=== PATIENT | female | born 1975 | race Caucasian/White ===

== ENCOUNTER 2019-10-18 07:33 | Outpatient (CLI) | payer BC, OTHER, SELFPAY ==
--- NOTE | ~2019-10-18 | MM_ITS ---
EXAMINATION: MM screening [facility] BI w desiree HISTORY: Screening TECHNIQUE: Craniocaudal and mediolateral oblique 3-D tomosynthesis images were obtained and synthetic 2-D images were generated. CAD analysis was submitted and interpreted. COMPARISON: Comparison to multiple prior studies sequentially, with oldest reviewed study dated 2012. BREAST PARENCHYMAL COMPOSITION: There are scattered areas of fibroglandular density. FINDINGS: There is no evidence of suspicious mass, calcification, or architectural distortion to sugg est malignancy in either breast. There has been no suspicious interval change. IMPRESSION: 1. No mammographic evidence of malignancy. 2. Recommend routine screening mammography in one year. BI-RADS Category 1: Negative Reviewed, dictated and finalized at location A.
== END 2019-10-18 07:34 | disposition home or self-care (01) ==
LOC: ANHIMG 07:39
PROVIDERS: PCP Family Medicine; Visit Provider Family Medicine
DX: Z12.31 Encounter for screening mammogram for malignant neoplasm of breast (principal)
CPT/HCPCS: 77063; 77067

== ENCOUNTER → 2020-07-03 09:58 | Outpatient (CLI) | payer BC, OTHER, SELFPAY ==
--- NOTE | ~2020-07-03 | XR_ITS ---
XR hand RT min 3V 07/03/2020 10:32 Indication: Right hand pain Procedure: 3 views right hand Comparison: No prior studies for comparison. Findings: No fracture, subluxation or dislocation. No erosive changes. No significant soft tissue abn ormality. No foreign bodies. Impression: 1: No significant bone or joint abnormality. Reviewed, dictated and finalized at location B. Impression: 1: No significant bone or joint abnormality.
== END ==
PROVIDERS: PCP Family Medicine; Visit Provider Nurse Practitioner Family
DX: M25.40 Effusion, unspecified joint (principal)
CPT/HCPCS: 73130

== ENCOUNTER 2020-10-20 07:57 | Outpatient (CLI) | payer BC, OTHER, SELFPAY ==
--- NOTE | ~2020-10-20 | MM_ITS ---
EXAMINATION: MM screening [facility] BI w desiree HISTORY: Screening mammogram TECHNIQUE: Craniocaudal and mediolateral oblique 3-D tomosynthesis images were obtained and synthetic 2-D images were generated. CAD analysis was submitted and interpreted. COMPARISON: 10/18/2019 10/24/2016, 10/29/2016 BREAST PARENCHYMAL COMPOSITION: There are scattered areas of fibroglandular density. FINDINGS: There is no evidence of suspicious mass, calcification, or architectural distortion to sugg est malignancy in either breast. There has been no suspicious interval change. IMPRESSION: 1. No mammographic evidence of malignancy. 2. Recommend routine screening mammography in one year. BI-RADS Category 1: Negative Reviewed, dictated and finalized at location A.
== END 2020-10-20 07:58 | disposition home or self-care (01) ==
LOC: ANHIMG 07:59
PROVIDERS: PCP Family Medicine; Visit Provider Family Medicine
DX: Z12.31 Encounter for screening mammogram for malignant neoplasm of breast (principal)
CPT/HCPCS: 77063; 77067

== ENCOUNTER 2021-03-30 10:44 | Outpatient (CLI) | payer BC, OTHER, SELFPAY ==
--- NOTE | ~2021-03-30 | XR_ITS ---
XR chest 2V 03/30/2021 11:15 Indication: Chest palpitations Procedure: PA and lateral views of the chest Comparison: No prior studies for comparison. Findings: There is lingular atelectasis. Right lung clear. No pleural effusion or pneumothorax. No ed robert, focal pneumonia, pleural effusion or pneumothorax. There are cholecystectomy clips. No acute oss eous abnormality. Impression: 1: There is lingular atelectasis. Reviewed, dictated and finalized at location B. NG ASSOCIATE Impression: 1: There is lingular atelectasis.
--- NOTE | 2021-03-30 11:12 | ECG_ITS ---
Measurements Intervals [place] Rate: 57 P: -18 [place]: 187 QRS: 0 QRSD: 85 T: 15 QT: 445 QTc: 434 Interpretive Statements SINUS BRADYCARDIA MINIMAL Q WAVES- HIGH LATERAL LEADS BORDERLINE ECG Electronically Signed On 03-30-2021 11:25:57 [employer] SUPERVISOR by Fausto Murry D.O.
== END 2021-03-30 10:45 | disposition home or self-care (01) ==
PROVIDERS: PCP Family Medicine; Visit Provider Nurse Practitioner Family
DX: R00.2 Palpitations (principal); R05.9 Cough, unspecified; R91.8 Other nonspecific abnormal finding of lung field; R94.31 Abnormal electrocardiogram [ECG] [EKG]
CPT/HCPCS: 71046; 93005

== ENCOUNTER 2021-08-27 08:48 | Outpatient (CLI) | payer BC, OTHER, SELFPAY ==
--- NOTE | ~2021-08-27 | US_ITS ---
EXAMINATION: US abdomen complete DATE: 08/27/2021 09:52 INDICATION: Abdominal pain, unspecified TECHNIQUE: Multiple grayscale and Doppler ultrasound images of the abdomen were obtained. COMPARISON: None available FINDINGS: Bowel gas obscures visualization of the pancreas. The visualized portions of the pancreas a re unremarkable. The liver is normal with normal echogenicity and echotexture. No surface nodularity. Normal hepatopetal flow in the main portal vein. The gallbladder is normal with no abnormal wall thi ckening, pericholecystic fluid or stones. The normal common bile duct measures 6 mm. There was no son ographic Pantoja sign. The visualized portions of the aorta and inferior vena cava are normal. The right kidney measures 12.4 x 4.6 x 4.2 cm. The left kidney measures 12.7 x 6.0 x 4.9 cm. The kidn eys demonstrate normal parenchymal echogenicity. There is no hydronephrosis. The spleen is normal in appearance and measures 8.8 cm. IMPRESSION: 1. No sonographic correlate for the patient's symptoms. Reviewed, dictated and finalized at location F.
== END 2021-08-27 08:49 | disposition home or self-care (01) ==
PROVIDERS: PCP Family Medicine; Visit Provider Nurse Practitioner Family
DX: R10.9 Unspecified abdominal pain (principal); E55.9 Vitamin D deficiency, unspecified; R53.83 Other fatigue
CPT/HCPCS: 76700

== ENCOUNTER 2021-08-28 06:40 | Outpatient (CLI) | payer BC, OTHER, SELFPAY ==
[2021-08-28 07:50] LABS: Alanine Aminotransferase 12 U/L (6-35); Albumin Level 4.1 g/dL (3.5-5.1); Alkaline Phosphatase 79 U/L (38-126); Amylase 60 U/L (30-110); Anion Gap 3 mmol/L (8-16); Aspartate Amino Transferase 16 U/L (14-36); Bilirubin,Total 0.4 mg/dL (0.2-1.3); Blood Urea Nitrogen 9 mg/dL (7-17); Calcium 8.6 mg/dL (8.4-10.2); Carbon Dioxide 29 mmol/L (22-30); Chloride 107 mmol/L (98-107); Estimated Glomerular Filt Rate > 60; Glucose 104 mg/dL (65-110); Lipase 42 U/L (23-300); Potassium 4.2 mmol/L (3.4-5.0); Sodium 139 mmol/L (137-145)
[2021-08-28 07:51] LABS: Basophils Percent Auto 0.4 % (0.2-1.2); Eosinophils Absolute Auto 0.4 K/mm3 (0-0.3); Eosinophils Percent Auto 6.6 % (0-4.4); Hematocrit 40.5 % (37.0-47.0); Hemoglobin 13.2 g/dL (12.0-15.0); Immature Granulocyte Absolute 0.02 K/mm3 (0.00-0.031); Immature Granulocyte Percent A 0.4 % (0-0.5); Lymphocytes Absolute Auto 1.11 K/mm3 (0.9-3.2); Lymphocytes Percent Auto 19.9 % (18.3-44.2); Mean Corpuscular HGB Conc 32.6 g/dl (32-36); Mean Corpuscular Hemoglobin 28.7 pg (26-34); Mean Platelet Volume 10.4 fl (7.4-10.4); Monocytes Absolute Auto 0.4 K/mm3 (0.1-0.6); Monocytes Percent Auto 6.4 % (2.6-8.5); Neutrophils Absolute Auto 3.7 K/mm3 (1.3-6.7); Neutrophils Percent Auto 66.3 % (45.5-73.1); Platelet Count Result 343 k/mm3 (150-375); White Blood Count 5.6 K/mm3 (4.5-10.0)
== END 2021-08-28 06:41 | disposition home or self-care (01) ==
LOC: ANHLAB 06:42
PROVIDERS: PCP Family Medicine; Visit Provider Nurse Practitioner Family
DX: R10.9 Unspecified abdominal pain (principal); E55.9 Vitamin D deficiency, unspecified; R53.83 Other fatigue
CPT/HCPCS: 36415; 80053; 82150; 82306; 83690; 84443; 85025

== ENCOUNTER 2022-02-15 08:03 | Outpatient (CLI) | payer BC, OTHER, SELFPAY ==
--- NOTE | ~2022-02-15 | MM_ITS ---
EXAMINATION: MM screening joelle BI w desiree HISTORY: Screening TECHNIQUE: Craniocaudal and mediolateral oblique 3-D tomosynthesis images were obtained and synthetic 2-D images were generated. CAD analysis was submitted and interpreted. COMPARISON: Comparison to multiple prior studies sequentially, with oldest reviewed study dated 08/2013. BREAST PARENCHYMAL COMPOSITION: Breast composed of scattered areas of fibroglandular density FINDINGS: There are bilateral breast asymmetries in the upper aspect of the right breast on MLO view and upper outer quadrant of the left breast. There are no suspicious calcifications or architectural distortion. IMPRESSION: 1. New bilateral breast asymmetries. 2. Additional mammographic views and possible breast ultrasound are recommended. BI-RADS Category 0: Incomplete: Needs additional imaging evaluation. Reviewed, dictated and finalized at location B. F CREW SCHEDULER IMPRESSION: 1. New bilateral breast asymmetries. 2. Additional mammographic views and possible breast ultrasound are recommended . BI-RADS Category 0: Incomplete: Needs additional imaging evaluation.
== END 2022-02-15 08:04 | disposition home or self-care (01) ==
LOC: ANHIMG 08:06
PROVIDERS: PCP Family Medicine; Visit Provider Nurse Practitioner Obstetrics & Gynecology
DX: Z12.31 Encounter for screening mammogram for malignant neoplasm of breast (principal); R92.8 Other abnormal and inconclusive findings on diagnostic imaging of breast
CPT/HCPCS: 77063; 77067

== ENCOUNTER 2022-03-25 11:10 | Outpatient (CLI) | payer BC, OTHER, SELFPAY ==
--- NOTE | ~2022-03-25 | MM_ITS ---
EXAMINATION: MM diagnostic joelle BI w desiree HISTORY: Bilateral breast asymmetries on screening mammogram TECHNIQUE: Additional 3-D tomosynthesis images of the breasts were performed and synthetic 2-D images were generated. CAD analysis was submitted and interpreted. COMPARISON: 02/15/2022, 10/20/2020, 10/18/2019, a [id number], a [id number] FINDINGS: There is a return to baseline fibroglandular appearance with spot compression of the breast s in the areas questioned on screening mammogram. IMPRESSION: 1. No mammographic evidence of malignancy. 2. Recommend routine screening mammography in one year. BI-RADS Category 1: Negative Reviewed, dictated and finalized at location A. DRILLER
== END 2022-03-25 11:11 | disposition home or self-care (01) ==
PROVIDERS: PCP Family Medicine; Visit Provider Nurse Practitioner Obstetrics & Gynecology
DX: R92.8 Other abnormal and inconclusive findings on diagnostic imaging of breast (principal)
CPT/HCPCS: 77062; 77066; G0279

== ENCOUNTER 2022-08-14 07:06 | Outpatient (CLI) | payer BC, OTHER, SELFPAY ==
[2022-08-14 07:27] LABS: Basophils Percent Auto 0.5 % (0.2-1.2); Eosinophils Absolute Auto 0.3 K/mm3 (0-0.3); Eosinophils Percent Auto 5.1 % (0-4.4); Hematocrit 42.6 % (37.0-47.0); Hemoglobin 13.7 g/dL (12.0-15.0); Immature Granulocyte Absolute 0.02 K/mm3 (0.00-0.031); Immature Granulocyte Percent A 0.4 % (0-0.5); Lymphocytes Absolute Auto 1.35 K/mm3 (0.9-3.2); Lymphocytes Percent Auto 23.8 % (18.3-44.2); Mean Corpuscular HGB Conc 32.2 g/dl (32-36); Mean Corpuscular Hemoglobin 29.3 pg (26-34); Mean Platelet Volume 10.2 fl (7.4-10.4); Monocytes Absolute Auto 0.3 K/mm3 (0.1-0.6); Neutrophils Absolute Auto 3.6 K/mm3 (1.3-6.7); Neutrophils Percent Auto 64.2 % (45.5-73.1); Platelet Count Result 277 k/mm3 (150-375); Red Blood Count 4.68 M/mm3 (4.2-5.4); Red Cell Distribution Width 14.1 % (11.5-14.5); White Blood Count 5.7 K/mm3 (4.5-10.0)
[2022-08-14 07:40] LABS: Alanine Aminotransferase 16 U/L (6-35); Albumin Level 4.2 g/dL (3.5-5.1); Alkaline Phosphatase 78 U/L (38-126); Anion Gap 4 mmol/L (8-16); Aspartate Amino Transferase 18 U/L (14-36); Bilirubin,Total 0.6 mg/dL (0.2-1.3); Blood Urea Nitrogen 8 mg/dL (7-17); Calcium 8.7 mg/dL (8.4-10.2); Carbon Dioxide 30 mmol/L (22-30); Chloride 105 mmol/L (98-107); Cholesterol 195 mg/dL (0-200); Estimated Glomerular Filt Rate > 60; Glucose 97 mg/dL (65-110); HDL Direct 73 mg/dL; Potassium 4.5 mmol/L (3.4-5.0); Sodium 139 mmol/L (137-145); Triglycerides 64 mg/dL (<150)
[2022-08-14 07:51] LABS: LDL Cholesterol Direct 107 mg/dL
== END 2022-08-14 07:07 | disposition home or self-care (01) ==
LOC: ANHLAB 07:09
PROVIDERS: PCP Family Medicine; Visit Provider Physician Assistant Medical
DX: E78.2 Mixed hyperlipidemia (principal); F32.81 Premenstrual dysphoric disorder; R00.2 Palpitations; F41.9 Anxiety disorder, unspecified
CPT/HCPCS: 36415; 80053; 80061; 84443; 85025

== ENCOUNTER 2022-09-10 02:32 | Day surgery (SDC) | payer BC, OTHER, SELFPAY ==
[2022-08-31 13:52] VITALS: BMI 34.2
[2022-09-10 06:19] VITALS: BP 128/68; PULSE 66; RESP 18; TEMP 36.3; O2SAT 98
[2022-09-10] MEDS: LACTATED RINGERS 1,000 ML 150 ML IV CONT (06:28)
--- NOTE | 2022-09-10 07:29 | WPDANESEPPF ---
Anes - Initial Pre Proc Eval Procedure: Operation Date: 09/10/22 07:30 Proposed Procedures p Colonoscopy - Hamlet Huynh MD Date/Time: 09/10/22 07:29 Surgeon: Hamlet Huynh MD Pre Op Diagnosis: family hx colon ca, family hx colon polyps Patient Data Age: 46 Gender: F Height: 1.73 m Weight: 103.3 kg Last Vital Signs Temp 97.3 F L 09/10/22 06:19 Pulse 66 09/10/22 06:19 Resp 18 09/10/22 06:19 BP 128/68 09/10/22 06:19 Pulse Ox 98 09/10/22 06:19 O2 Del Method Room Air 09/10/22 06:19 Allergies Allergy/AdvReac Type Severity Reaction Status Date / Time No Known Allergies Allergy Verified 09/10/22 06:18 Home Medications Medication Instructions Recorded Confirmed Type omeprazole 40 mg capsule,delayed 40 mg PO BID #180 caps 02/24/22 08/31/22 Rx release duloxetine 60 mg capsule,delayed 60 mg PO DAILY #90 caps 08/09/22 08/31/22 Rx release (Cymbalta) alprazolam 0.5 mg tablet 0.5 mg PO DAILY PRN Anxiety 08/31/22 08/31/22 History gabapentin 300 mg capsule 600 mg PO HS 08/31/22 08/31/22 History Patient hx anesthesia problems: none Family hx anesthesia problems: none Results Review: All pre-operative results and documents have been reviewed as part of the pre-operative evaluation. [facility] Past Medical History Medical History BMI 32.0-32.9,adult BMI 33.0-33.9,adult BMI 34.0-34.9,adult BMI 35.0-35.9,adult BMI 36.0-36.9,adult Cerumen in auditory canal on examination Cholecystectomy planned Family History Family History Father Family history of coronary artery disease Mother Alcohol abuse COPD (chronic obstructive pulmonary disease) Sibling No problems noted. Other Family history of lung cancer Family history of malignant neoplasm of male breast Family history of throat cancer Hypertension Social History Social History Smoking packs per day: 1 Smoking cigarettes per day: 20.0 Years smoked: 15 Smoking pack-years: 15.00 Smoking status: Former smoker Tobacco type: cigarettes and e-cigarettes/vaping Second hand tobacco smoke exposure: Yes Additional smoking assessment comments: VAPING X 7YRS Alcohol intake: current Alcohol use details: occaisionally Substance use: never Substance use type: does not use Lack of Transportation: No Lack of Food: Never True Current Housing: I Have Housing Concerned About Future Housing: No Difficulty Paying Gas/Electric Bills: No Difficulty Paying for Meds: No Currently Unemployed: No Education: Bachelor's Degree Difficulty w/ Childcare or Family Care: No Living arrangements: with family Occupation/Education: occupation Additional occupation/education comments: [employer] Gender identity (if verbalized by the patient): Female Spiritual care concerns: No Anes - Eval Final PreProcedure Day of Procedure 09/10/22 07:29 Patient weight: obese Heart: regular rate and rhythm Lungs: clear to auscultation Airway: Mallampati scale class II Neurological: alert and oriented Last oral intake: >/= 8 hours ASA classification: II Emergent: no Anesthetic plan: proceed Anesthesia type and monitoring: general GIVS and standard monitoring Results Review: All pre-operative results and documents have been reviewed as part of the pre-operative evaluation. Informed Consent: The patient's anesthetic plan and its attendant risks and benefits were discussed with the patient/family/POA. Questions were solicited and answers provided to the satisfaction of the patient/family/POA.
--- NOTE | 2022-09-10 07:55 | PM.HPGS ---
History of Present Illness History of Present Illness Consent: Risks, benefits, and alternatives have been discussed and questions answered. Patient agrees to proceed with procedure. Chief complaint: family hx colon ca, family hx colon polyps Narrative: Priyanka Sage is a 46 year old female Presents for colonoscopy. Patient reports her mother had colon polyps. Patient also reports her aunt, uncle, and grandmother, all have had colon cancer. Patient's previous colonoscopy was unremarkable patient presents today for screening exam. Patient reports that her own weight appetite bowel movements are normal. Patient denies abdominal pain. She has had no bleeding. Review of Systems Review of Systems: Review of systems noncontributory. [facility] Past Medical History Medical History BMI 32.0-32.9,adult BMI 33.0-33.9,adult BMI 34.0-34.9,adult BMI 35.0-35.9,adult BMI 36.0-36.9,adult Cerumen in auditory canal on examination Cholecystectomy planned Family History Family History Father Family history of coronary artery disease Mother Alcohol abuse COPD (chronic obstructive pulmonary disease) Sibling No problems noted. Other Family history of lung cancer Family history of malignant neoplasm of male breast Family history of throat cancer Hypertension Social History Social History Smoking packs per day: 1 Smoking cigarettes per day: 20.0 Years smoked: 15 Smoking pack-years: 15.00 Smoking status: Former smoker Tobacco type: cigarettes and e-cigarettes/vaping Second hand tobacco smoke exposure: Yes Additional smoking assessment comments: VAPING X 7YRS Alcohol intake: current Alcohol use details: occaisionally Substance use: never Substance use type: does not use Lack of Transportation: No Lack of Food: Never True Current Housing: I Have Housing Concerned About Future Housing: No Difficulty Paying Gas/Electric Bills: No Difficulty Paying for Meds: No Currently Unemployed: No Education: Bachelor's Degree Difficulty w/ Childcare or Family Care: No Living arrangements: with family Occupation/Education: occupation Additional occupation/education comments: [employer] Gender identity (if verbalized by the patient): Female Spiritual care concerns: No Meds Home Medications and Allergies Home Medications Medication Instructions Recorded Confirmed Type omeprazole 40 mg capsule,delayed 40 mg PO BID #180 caps 02/24/22 08/31/22 Rx release duloxetine 60 mg capsule,delayed 60 mg PO DAILY #90 caps 08/09/22 08/31/22 Rx release (Cymbalta) alprazolam 0.5 mg tablet 0.5 mg PO DAILY PRN Anxiety 08/31/22 08/31/22 History gabapentin 300 mg capsule 300 mg PO TID #90 caps 09/10/22 Rx Allergies Allergy/AdvReac Type Severity Reaction Status Date / Time No Known Allergies Allergy Verified 09/10/22 06:18 Vital Signs Vital Signs - 24 hr 09/10/22 06:19 Temperature 97.3 F L Pulse Rate 66 Respiratory Rate 18 Blood Pressure 128/68 Pulse Oximetry 98 Oxygen Delivery Room Air Exam Narrative: Physical exam reveals patient to be alert. Vital signs stable. HEENT exam is unremarkable. Patient is anicteric. Lungs are clear to auscultation and percussion. Heart is without murmur or extra sounds. Abdomen bowel sounds are present soft nontender with no organomegaly. Digital external rectal exam is normal. Assessment and Plan Assessment and plan (1) Family hx of colon cancer: Code(s): Z80.0 - Family history of malignant neoplasm of digestive organs Status: Acute Assessment and Plan: Patient has a very strong family history of colon cancer and polyps. Patient's mother had polyps. An aunt and uncle in Grandparent have all had colon cancer. Plan for surve
[2022-09-10 07:58] VITALS: BP 97/72; PULSE 68; RESP 19; O2SAT 98
[2022-09-10 08:08] VITALS: BP 113/70; PULSE 65; RESP 15; O2SAT 99
[2022-09-10 08:18] VITALS: BP 130/86; PULSE 65; RESP 21; O2SAT 100
== END 2022-09-10 08:22 | disposition home or self-care (01) ==
PROVIDERS: PCP Family Medicine; Visit Provider Internal Medicine Gastroenterology
PROC: 0DJD8ZZ Inspection of Lower Intestinal Tract, Via Natural or Artificial Opening Endoscopic (ICD-10-PCS; CPT 45378; principal; 2022-09-10 07:30)
DX: Z12.11 Encounter for screening for malignant neoplasm of colon (principal); K64.8 Other hemorrhoids; Z83.71 Family history of colonic polyps; Z80.0 Family history of malignant neoplasm of digestive organs; F17.290 Nicotine dependence, other tobacco product, uncomplicated; E66.9 Obesity, unspecified; Z68.34 Body mass index [BMI] 34.0-34.9, adult
CPT/HCPCS: 45378; J2704; J7120

== ENCOUNTER 2023-11-24 06:49 | Outpatient (CLI) | payer BC, OTHER, SELFPAY ==
[2023-11-24 08:39] LABS: Basophils Percent Auto 0.4 % (0.2-1.2); Eosinophils Absolute Auto 0.3 K/mm3 (0-0.3); Eosinophils Percent Auto 6.1 % (0-4.4); Hematocrit 41.8 % (37.0-47.0); Hemoglobin 13.6 g/dL (12.0-15.0); Immature Granulocyte Absolute 0.01 K/mm3 (0.00-0.031); Immature Granulocyte Percent A 0.2 % (0-0.5); Lymphocytes Absolute Auto 0.85 K/mm3 (0.9-3.2); Lymphocytes Percent Auto 18.4 % (18.3-44.2); Mean Corpuscular HGB Conc 32.5 g/dl (32-36); Mean Corpuscular Hemoglobin 29.8 pg (26-34); Mean Corpuscular Volume 91.5 fl (80-100); Mean Platelet Volume 10.8 fl (7.4-10.4); Monocytes Absolute Auto 0.3 K/mm3 (0.1-0.6); Monocytes Percent Auto 6.7 % (2.6-8.5); Neutrophils Absolute Auto 3.1 K/mm3 (1.3-6.7); Neutrophils Percent Auto 68.2 % (45.5-73.1); Platelet Count Result 273 k/mm3 (150-375); Red Blood Count 4.57 M/mm3 (4.2-5.4); Red Cell Distribution Width 13.2 % (11.5-14.5); White Blood Count 4.6 K/mm3 (4.5-10.0)
[2023-11-24 08:49] LABS: Alanine Aminotransferase 14 U/L (6-35); Albumin Level 4.3 g/dL (3.5-5.1); Alkaline Phosphatase 55 U/L (38-126); Anion Gap 8 mmol/L (4-12); Aspartate Amino Transferase 23 U/L (14-36); Bilirubin,Total 0.8 mg/dL (0.2-1.3); Blood Urea Nitrogen 10 mg/dL (7-17); Calcium 9.1 mg/dL (8.4-10.2); Carbon Dioxide 26 mmol/L (22-30); Chloride 102 mmol/L (98-107); Cholesterol 152 mg/dL (0-200); Estimated Glomerular Filt Rate > 60; Glucose 83 mg/dL (65-110); HDL Direct 52 mg/dL; Potassium 4.2 mmol/L (3.4-5.0); Sodium 136 mmol/L (137-145); Triglycerides 64 mg/dL (<150)
[2023-11-24 09:00] LABS: LDL Cholesterol Direct 78 mg/dL
[2023-11-24 09:53] LABS: Vitamin D 25 Hydroxy 64.3 ng/mL
== END 2023-11-24 06:50 | disposition home or self-care (01) ==
LOC: ANHLAB 06:51
PROVIDERS: PCP Family Medicine; Visit Provider Physician Assistant Medical
DX: E66.9 Obesity, unspecified (principal); E55.9 Vitamin D deficiency, unspecified; E78.2 Mixed hyperlipidemia; F32.81 Premenstrual dysphoric disorder
CPT/HCPCS: 36415; 80053; 80061; 82306; 84443; 85025

== ENCOUNTER 2024-04-26 07:24 | Outpatient (CLI) | payer BC, OTHER, SELFPAY ==
--- NOTE | ~2024-04-26 | MM_ITS ---
EXAMINATION: MM screening joelle BI w desiree HISTORY: Screening TECHNIQUE: Craniocaudal and mediolateral oblique 3-D tomosynthesis images were obtained and synthetic 2-D images were generated. CAD analysis was submitted and interpreted. COMPARISON: Comparison to multiple prior studies sequentially, with oldest reviewed study dated 10/29. BREAST PARENCHYMAL COMPOSITION: Not dense: There are scattered areas of fibroglandular density. FINDINGS: There are developing asymmetries medially in the left breast, best seen on CC views. The ri ght breast is stable without evidence for malignancy. IMPRESSION: 1. Developing left breast asymmetries. 2. Additional mammographic views and possible breast ultrasound are recommended. BI-RADS Category 0: Incomplete: Needs additional imaging evaluation. Reviewed, dictated and finalized at location B. ASSESSOR IMPRESSION: 1. Developing left breast asymmetries. 2. Additional mammographic views and possible breast ultrasound are recommended . BI-RADS Category 0: Incomplete: Needs additional imaging evaluation.
--- OUTSIDE RECORDS SUMMARY | 2024-04-26 07:29 | XMS_ITS | Data Portability ---
Author Organization [facility],, Main Office Address [address] [facility] [address] [place] [address] Care Team Providers Care Wildlife Refuge Manager Name Role Phone JACQUELINE ZUNIGA Primary Care Provider [phone] Assessment Encounter Date Assessment Date Assessment LastModified by Organization Details LastModified Time 09/17/2020 09/17/2020 Total time spent on the date of service preparing for, seeing the patient, and completing the documentation was 35 minutes. Not available 09/17/2020 15:09:27 10/15/2020 10/15/2020 Total time spent on the date of service preparing for, seeing the patient, and completing the documentation was 35 minutes. [email or web address] Not available 10/15/2020 15:27:41 Plan of Treatment Reminders Order Date Submit Date Provider Last Modified By Organization Details Last Modified Time Details Appointments None recorded. Lab None recorded. Referral None recorded. Procedures None recorded. Surgeries None recorded. Imaging None recorded. Medication Orders Valtrex 1 gram tablet 2020 021 [id number], [address] [place], [place], [id number], 11:45:24 Patient TargetsNo targets recorded. Patient InstructionsNo instructions recorded. Reason for Referral None Reported. Problems Name Problem SNOMED Code Status Onset Date Resolution Date Notes Provider Name and Address Organization Details Recorded Time Pain in right foot [id number] 07 Active 2020 Geneva Beasley DPM [address] [facility],[address], [place], [address], [facility], 1 15:07:02 Plantar wart of right foot 2088128608954 9101 Active 2020 Geneva Beasley, ETHAN [address] [facility],[address], [place], [address], [facility], 1 15:07:03 Liza is 281482160 Active 2020 Geneva Beasley, ETHAN [address] [facility],[address], [place], [address], [facility], 1 15:07:03 Problem Notes None recorded. Procedures Surgical History Date Name Laterality Status Provider Name and Address Organization Details Recorded Time Skin Lesion Topical Procedure completed Geneva Beasley DPM [address] [facility],[address], [place], [address], [facility], 09/17/2020 15:08:50 colonoscopy completed [facility], 08/13/2020 15:09:15 procedure on gallbladder completed [facility], 08/13/2020 15:09:24 extraction of wisdom tooth completed [facility], 08/13/2020 15:09:47 Imaging Results None recorded. Procedure Notes None recorded. Medical Equipment None Reported. Allergies No known drug allergies Medications Name Sig Start Date Stop Date Status Note LastModified by Organization Details LastModified Time bupropion HCl SR 150 mg tablet,12 hr sustained-re lease TAKE 1 TABLET BY MOUTH TWICE DAILY active Not Available Not Available No t Available nabumetone 750 mg tablet TAKE 1 TABLET BY MOUTH TWICE DAILY active Not Available Not Available No t Available tizanidine 2 mg tablet TK 1 T PO D PRF MUSCLE SPASTICITY active Not Available Not Available N ot Available Nystop 100,000 unit/gram topical powder APPLY TOPICALLY TWICE DAILY active Not Available Not Available Not Available omeprazole 40 mg capsule,tatiana yed release TAKE 1 CAPSULE BY MOUTH DAILY active Not Available Not Available Not Available alprazolam 0.5 mg tablet TK 1 T PO TID active Not Available Not Available No t Available paroxetine 20 mg tablet TAKE 1 TABLET BY MOUTH DAILY active Not Available Not Available Not Available Valtrex 1 gram tablet Take 1 tablet every day by oral route for 30 days. 2020 active Not Available Not Available Not Avai lable gabapentin 300 mg capsule TAKE 1 CAPSULE BY MOUTH THREE TIMES DAILY active Not Available Not Available Not Available diclofenac sodium 75 mg tablet,delay ed release TK 1 T PO BID active Not Available Not Available No t Available furosemide 20 mg tablet TK / T PO QAM active Not Available Not Available No t Available ketoconazole 2 % topical cream APPLY TOPICALLY TO THE AFFECTED AREA TWICE DAILY active Not Available Not Available No t Available clindamycin 1 % lotion active Not Available Not Available N ot Available Vyvanse 70 mg capsule TAKE 1 CAPSULE BY MOUTH DAILY active Not Available Not Available Not Available Vitals Date Recorded Body height Body mass index (BMI) Body weight Heart rate Oxygen saturation Oxygen saturation in Arterial blood by Pulse oximetry Body temperature Systolic blood pressure Diastolic blood pressure Provider Name and Address Organization Details Last Updated DateTime 1 175.26 cm 36.3 kg/m2 891079. 72 g 63 /min 98 % 98 % 97.3 [degF] 124 mm[Hg] 80 mm[Hg] [facility], 1 15:06:58 Date Recorded Body height Body mass index (BMI) Body weight Heart rate Oxygen saturation Oxygen saturation in Arterial blood by Pulse oximetry Body temperature Systolic blood pressure Diastolic blood pressure Provider Name and Address Organization Details Last Updated DateTime 1 175.26 cm 36.3 kg/m2 066435. 72 g 82 /min 98 % 98 % 98.2 [degF] 123 mm[Hg] 77 mm[Hg] [facility], 1 14:31:42 Date Recorded Body height Body mass index (BMI) Body weight Heart rate Oxygen saturation Oxygen saturation in Arterial blood by Pulse oximetry Body temperature Systolic blood pressure Diastolic blood pressure Provider Name and Address Organization Details Last Updated DateTime 1 175.26 cm 36.3 kg/m2 659792. 72 g 80 /min 99 % 99 % 98.2 [degF] 126 mm[Hg] 95 mm[Hg] Kimmie Haney [facility], 14:01:40 Social History Question Answer Notes LastModified by Organizat ion Details LastModified Time Tobacco Smoking Status Former Smoker Started: 17, Quit: 7 yrs ago Tracy [facility], 08/13/2020 15:08:31 What Is Your Level Of Alcohol Consumption? 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 08/13/2020 [email or web address] Information not available 08/13/2020 Sex: Unknown Functional Status None recorded. Mental Status None recorded. Family History Nothing Reported. Medical History Condition Response Coronary Artery Disease N Gout N Artificial Joints N Thyroid Problems N Lung Disease N Pacemaker N Edema N Anemia N Back Pain N Deep Vein Thrombosis N Varicose Veins N Diabetes N Bleeding Disorder N Arthritis Y Seizures/Epilepsy N Blood Clot N AIDS/HIV N Cancer N Stroke N Asthma N Leg or Foot Ulcers N Raynaud's Disease N Peripheral Vascular Disease N Hepatitis N Liver Disease N Heart Disease N Rheumatoid Arthritis N Pulmonary Embolism N Fibromyalgia N Foot Deformity N Hypertension N Osteoporosis N Kidney Disease N Gynecological HistoryNo gynecological history recorded. Obstetrics History GPAL:G 0 P 0 0 0 0 Past Encounters Encounter ID Performer Location Encounter Start Date Encounter Closed Date Diagnosis/Indication Diagnosis SNOMED-CT Code Diagnosis ICD10 Code Diagnosis Note [id number] Geneva Beasley DPM Main Office [address] [facility] [address] [place] [address] 08/13/2020 13:59:25 08/13/2020 14:31:20 Pain in right foot [id number] 63222 A41.975 Discussed options of care with {{him her* }}. Discussed benefits and risks of various treatment options, which include, but are not limited to: chemical cautery, surgical excision, and laser therapy. Discussed recovery of each procedure with patient. Answered all of patient's questions. Conservati ve treatment plan is the preferred method of treatment for {{him her* }}. Proper home foot care was discussed including daily foot checks, daily foot washing, and using topical emollients . {{He She*} } verbalized understand ing of daily checks in early interventi on. Handout given on preventive foot care. {{He She*} } voiced understand ing of the condition, home care, and expected healing, and was happy with this treatment plan. {{He She*} } is to return to the office in 6 - 8 weeks if symptoms do not improve, otherwise on an as needed basis. Plantar wa rt of right foot 5203814200 2199864 B07.0 Porokeratosis 482134372 Q82.8 [id number] Geneva Beasley DPM Main Office [address] [address] 09/17/2020 14:09:06 09/17/2020 15:08:35 Pain in right foot 4626392051 31930 M79.671 Discussed options of care with {{him her* }}. Discussed benefits and risks of various treatment options, which include, but are not limited to: chemical cautery, surgical excision, and laser therapy. Discussed recovery of each procedure with patient. Answered all of patient's questions. Conservati ve treatment plan is the preferred method of treatment for {{him her* }}. Proper home foot care was discussed including daily foot checks, daily foot washing, and using topical emollients . {{He She*} } verbalized understand ing of daily checks in early interventi on. Handout given on preventive foot care. {{He She*} } voiced understand ing of the condition, home care, and expected healing, and was happy with this treatment plan. {{He She*} } is to return to the office in 1 month. Plantar wa rt of right foot 0371231588 3556414 B07.0 Porokeratosis 500567900 Q82.8 [id number] Geneva Beasley DPM Main Office [address] [address] 10/15/2020 13:51:12 10/15/2020 14:07:51 Pain in right foot 1249079372 67037 M79.671 Discussed options of care with {{him her* }}. Discussed benefits and risks of various treatment options, which include, but are not limited to: chemical cautery, surgical excision, and laser therapy. Discussed recovery of each procedure with patient. Answered all of patient's questions. Conservati ve treatment plan is the preferred method of treatment for {{him her* }}. Proper home foot care was discussed including daily foot checks, daily foot washing, and using topical emollients . {{He She*} } verbalized understand ing of daily checks in early interventi on. Handout given on preventive foot care. {{He She*} } voiced understand ing of the condition, home care, and expected healing, and was happy with this treatment plan. {{He She*} } is to return to the office in 1 month. Plantar wa rt of right foot 7857298750 2283596 B07.0 Porokeratosis 823644729 Q82.8 Health Concerns Section Related Observation LastModified by Organization Detai ls LastModified Time None Recorded Concern Status LastModified by Organization Details LastModified Time None Recorded Advance Directives Directive None Recorded Payers Encounter Date Sequence Insurance Name Policy Number Policy Hi Covered Member ID Hi Member ID Guarantor Name 08/13/2020 1 [place] [id number] Priyanka Chu [id number] Priyanka Chu 08/13/2020 2 [facility] [id number] Priyanka L [place] [id number] Priyanka Chu 09/17/2020 1 [place] [id number] Priyanka Chu [id number] Priyanka Chu 09/17/2020 2 [facility] [id number] Priyanka L [place] [id number] Priyanka Chu 10/15/2020 1 [place] [id number] Priyanka Chu [id number] Priyanka Chu 10/15/2020 2 [facility] [id number] Priyanka L [place] [id number] Priyanka Chu Notes Date Note Type Note Provider Name and Address Organization Details Recorded Time 08/13/2020 text/html {{He She*}} presents to the office today with a complaint of a plantar lesion to the {{left right*}} foot that has been present for {{days weeks* crow hs}}. {{He She*}} relates that {{he she*}} {{has* has not}} tried treating the area at home. {{He She*}} relates that the lesion is getting larger and causes {{aching,throbbing , and stabbing* }}. Outside reports reviewed: {{Office notes and historical medical records* operative reports lab reports x-ray reports}} Geneva Beasley, ETHAN [address] [facility] [address] [place] [address], [address], [facility], 08/13/2020 15:42:45 09/17/2020 text/html Patient returns to the office for follow up of {{her painful right foot lesion# }}. Relates that the condition {{improved worsene d*}} since the last visit and that {{all activity# }} increases the pain. They complain of {{stabbing and throbbing# }} pain and {{have* have not}} followed home care instructions as directed. Previous treatments include changes in shoe gear, rest, ice, massage, home PT, decrease in activities, and NSAID's. Outside reports reviewed: {{Office notes and historical medical records* operative reports lab reports x-ray reports}} Geneva Beasley DPM [address] [facility],[address], [place], [address], [facility], 09/17/2020 15:11:37 10/15/2020 text/html Patient returns to the office for follow up of {{ her painful right foot lesion#}}. Relates that the condition {{improved* worsen ed}} since the last visit and she only has pain when she directly steps on the area. She complains of {{ aching#}} pain and {{have have not has#}} followed home care instructions as directed. Previous treatments include changes in shoe gear, rest, ice, massage, home PT, decrease in activities, and NSAID's. Outside reports reviewed: {{Office notes and historical medical records* operative reports lab reports x-ray reports}} Geneva Beasley, DPTy [address] [facility],[address], [place], [address], [facility], 10/15/2020 15:27:58 OBGyn Episode No OBEpisode recorded.
--- OUTSIDE RECORDS SUMMARY | 2024-04-26 07:29 | XMS_ITS | Clinical Summary ---
Author Organization [facility] Address [address] [place] [address] Phone Care Team Providers Care Custodial Operations Manager Name Role Phone Unavailable Primary Care Provider Unavailabl e Allergies No known active allergies Medications lisdexamfetamin e (VYVANSE) 70 mg capsule Take 70 mg by mouth daily director of retention. Active escitalopram oxalate (LEXAPRO) 10 mg tablet Take 10 mg by mouth daily. Active buPROPion HCl (WELLBUTRIN SR) 150 mg Sustained Release 12 hour tablet Take 150 mg by mouth 2 times daily. Active esomeprazole (NEXIUM) 40 mg Capsule, Delayed Release(E.C.) Take 40 mg by mouth daily before breakfast. Active OTHER [employer] allergy pill- takes one once daily;prn. Active multivitamin (DAILY-ALBA) tablet Take 1 Tab by mouth daily. Active furosemide (LASIX) 20 mg tablet Take 10 mg by mouth daily. Active phentermine (ADIPEX P) 37.5 mg tablet Take 37.5 mg by mouth daily before breakfast Tuesday - Tuesday . Active melatonin 10 mg Tablet Take 20 mg by mouth daily at bedtime. Active naproxen sodium (ALEVE) 220 mg Tablet Take 220 mg by mouth every 4 hours as needed for Pain, Moderate. Active oxyCODONE-aceta minophen (PERCOCET) 5-325 mg tablet Take 1 Tablet by mouth every 4 hours as needed for Pain, Mild. Max Daily Amount: 6 Tablet 47 Tablet 0 6 Active Active Problems Problem Noted Date Diagnosed Date SLAP 04/04/2015 Immunizations Immunization Administration Dates Next Due Influenza Seasonal Unspecified Formulation IM Social History Tobacco Use Types Packs/Day Years Used Date Smoking Tobacco: Former Cigarettes 1 20 E-Cigarette/Mist Inhalation Device Comments:e cigarettes now Alcohol Use Standard Drinks/Week Comments Yes 0 (1 standard drink = 0.6 oz pur e alcohol) rare Comments No Sex and Gender Information Value Date Recorded Sex Assigned at Not on file Legal Sex Female 10:03 AM [employer] Gender Identity Not on file Sexual Orientation Not on file Last Filed Vital Signs Vital Sign Reading Time Taken Comments Blood Pressure 114/63 04/05/2015 10:53 AM [employer] Pulse 58 04/05/2015 10:53 AM [employer] Temperature 36.7 C (98 F) 04/05/2015 10:53 AM [employer] Respiratory Rate 16 04/05/2015 10:53 AM [employer] Oxygen Saturation 97% 04/05/2015 10:53 AM [employer] Inhaled Oxygen Concentration - - Weight 94.3 kg (208 lb) 04/04/2015 6:17 AM [employer] Height 172.7 cm (5' 8 ) 03/12/2015 3:26 PM [employer] Body Mass Index 31.63 03/12/2015 3:26 PM [employer] Plan of Treatment Health Maintenance Due Date Last Done Comments DTAP/TDAP/TD VACCINES (1 - Tdap) 1996 HEPATITIS B VACCINES (1 of 3 - 19+ 3-dose series) 1996 CERVICAL CANCER SCREENING 10/04/2007 BREAST CANCER SCREENING 2017 COLORECTAL SCREENING 2022 Colorectal Cancer Screening 2022 FIT-DNA Q 3 years 2022 FIT/FOBT Q 1 year 2022 Flex Sig/CT Colonography Q 5 years 2022 INFLUENZA VACCINE (#1) 2023 11/05/2014 HPV VACCINES Aged Out No longer eligi ble based on patient's age to complete this topic PNEUMOCOCCAL VACCINE 0-64 YEARS Aged Out No longer eligible based on patient's age to complete this topic Medical Devices Implanted Type Area Supply Chain Manager Device Identifier Shelf Expiration Date Model / Serial / Lot Sling Desara System [id number] - [id number] Implanted:Qty: 1 on 04/04/2015 by Kely Youngblood MD at [facility] Sling N/A: Urethra [employer] 06/03/2017 [id number] / / [id number] Description:PO#[id number] Iud Insurance [facility] [id number] Advance Directives For more information, please contact: [phone] * Full Code (Latest Code Status on File) Date Activated Date Inactivated Comments 04/04/2015 6:06 AM 04/05/2015 4:25 PM
--- OUTSIDE RECORDS SUMMARY | 2024-04-26 07:30 | XMS_ITS | Data Portability ---
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 Patient will come back in a year unless there are new symptoms. Not available 10/22/2020 10:35:28 12/22/2021 12/22/2021 Annual gynecological exam performed. Patient will come back in a year unless there are new symptoms. Not available 12/22/2021 11:04:50 04/12/2024 04/12/2024 Annual gynecological exam performed. Patient will come back in a year unless there are new symptoms. Not available 04/12/2024 09:23:57 Plan of Treatment Reminders Order Date Submit Date Provider Last Modified By Organization Details Last Modified Time Details Appointments None recorded. Lab test, urine 2024 025 [facility], [address], [address], [place], [address], 09:58:59 hormone panel, serum or plasma 2021 022 [facility] (Lab), [address] [facility], [place], [address], 11:30:29 prolactin, serum 2021 022 [facility] (Lab), [address], [place], [address], 11:30:29 Referral urogynecolo gist referral - Vulvar specialist referral!!! 2020 021 [email or web address] Senia Chavez MD - [facility], [address], [address], [place], [address], 16:49:51 Procedures None recorded. Surgeries None recorded. Imaging MAMMO, screening, digital, bilateral 2024 025 [facility], [address], [place], [address], 5 04:08:37 Medication Orders clobetasol 0.05 % topical ointment 2021 022 [facility][id number], [address], [place], [place], [id number], 11:20:05 clobetasol 0.05 % topical ointment 2021 022 [facility] #[id number], [address], [place], [place], [id number], 12:59:24 nystatin-tr iamcinolone 100,000 unit/gram-0 .1 % topical ointment 2020 021 [facility] #[id number], [address], [place], [place], [id number], 11:06:04 Patient TargetsNo targets recorded. Patient InstructionsNo instructions recorded. Reason for Referral Urogynecologist Referral for Genital lichen sclerosus Lichen's Sclerosis Management Vulvar specialist referral!!! Referring Physician: Sheryl Brennan, MILL HOUSE SUPERVISOR, Encounter Date: 10/22/2020 Results Created Date Observation Date Name Description Value Unit Range Abnormal Flag Note LastModifiedBy Organization Detail LastModifiedTime 10/23/19 21 10/22/2020 IMAGE GUIDE D PAP AND HPV REGAR DLESS image guided Pap, HPV regardless of Pap result SEE RESULT S BELOW CASE REPOR T: Cytol ogy Gynec ologi zaira Repor t Case: [id number] Autho anniloretta gautam Provi lisa: Husam faria , Timothy Zacarias cted: 10/22 1211 LIFE SCIENCE TECHNICAL OFFICER Order ing Locat ion: [place] Path[facility] log[facility] Recei dawson: 10/23 0008 First Scree n: Su Bowman ret, CT Speci men: Scree gómez Pap - Image d, Cervi x STATE MENT OF ADEQU ACY: Satis facto ry for evalu ation Trans forma tion zone compo nent absen t FINAL DIAGN OSIS: Negat theresa for Intra epith elial Lesio n or Laurel watkins (NIL) Shift in loraine sugge stive of bacte rial vagin osis Elect israel tello dandre d by Su Bowman ret, CT on 2020 at 2:33 PM ----- ----- ----- ----- ----- ----- ----- ----- ----- ----- ----- ----- ----- ----- ----- ----- ----- ---- HPV RESUL TS: HPV mRNA E6/E7 : No HPV mRNA Detec alexey NOTE: This high risk HPV mRNA assay detec ts fourt een high- risk HPV types (16, 18, 31, 33, 35, 39, 45, 51, 52, 56, 58, 59, 66, 68) witho ut diffe renti ation . COMME NT: Note: This speci men was revie wed by a Cytot echno logis t and/o r Patho logis t (as indic ated in this repor t) after evalu ation using the Thinp rep Imagi ng Syste m. CLINI ZAIRA INFOR MATIO N: Menst rual Statu s: LMP (if appli cable ): 021 Clini zaira Histo ry/Pr eviou s Pap: Type of Neopl toribio (if appli cable ): Signi fican t Clini zaira Findi ngs: Other Histo ry: Hormo leah (if appli cable ): PAP EDUCA JOHN L NOTE: The Pap Test is a scree gómez test with an inher ent false negat theresa rate. Liqui d-bas e sampl ing may decre ase, but will not elimi ivone, false negat theresa resul ts. A negat theresa resul t does not precl ude the prese nce and/o r devel opmen t of disea se, since the prese nce of abnor mal cells in the sampl e depen ds on the locat ion of the lesio n and sampl ing techn ique. Merlin nued regul ar scree gómez is the best metho d of cance r preve ntion . If repor alexey cytol ogic findi ng do not corre late with physi zaira and/o r histo rical findi ngs, furth er inves tigat ion is recom estefanía d, as clini nilson foster nted. Not Available [facility] (Lab) [address] [facility], [place], [address], 10/23/2020 15:36:33 04/12/19 25 04/12/2024 IMAGE GUIDE D PAP AND HPV REGAR DLESS image guided Pap, HPV regardless of Pap result SEE RESULT S BELOW CASE REPOR T: Cytol ogy Gynec ologi zaira Repor t Case: [id number] Autho michelle g Provi lisa: Joy Montgomery, KRISTIN Colle cted: 04/12 0907 Order ing Locat ion: [place] Patho logy Recei dawson: 04/13 0735 First Scree n: DeLuc a, Dalila, CT Speci men: Scree gómez Pap - Image d, Cervi x STATE MENT OF ADEQU ACY: Satis facto ry for evalu ation Trans forma tion zone compo nent prese nt ----- ----- ----- ----- ----- ----- ----- ----- ----- ----- ----- ----- ----- ----- ----- ----- ----- ---- FINAL DIAGN OSIS: Negat theresa for Intra epith elial Bacilio gaffney or Laurel watkins (NIL) . Shift in loraine sugge stive of bacte rial vagin osis. Elect israel louise by Dalila molina, CT on 2024 at 1315 RESET MERCHANDISER ----- ----- ----- ----- ----- ----- ----- ----- ----- ----- ----- ----- ----- ----- ----- ----- ----- ---- HPV RESUL TS: HPV mRNA E6/E7 : No HPV mRNA Detec alexey NOTE: This high risk HPV mRNA assay detec ts fourt een high- risk HPV types (16, 18, 31, 33, 35, 39, 45, 51, 52, 56, 58, 59, 66, 68) witho ut diffe renti ation . COMME NT: This speci men was revie wed by a Cytot echno logis t and/o r Patho logis t (as indic ated in this repor t) after evalu ation using the Thinp rep Imagi ng Syste m. CLINI ZAIRA INFOR MATIO N: Menst rual Statu s: LMP (if appli cable ): Clini zaira Histo ry/Pr eviou s Pap: Type of Neopl toribio (if appli cable ): Signi fred t Clini zaira Findi ngs: Other Histo ry: Hormo leah (if appli cable ): PAP EDUCA JOHN L NOTE: The Pap Test is a scree gómez test with an inher ent false negat theresa rate. Liqui d-bas ed sampl ing may decre ase, but will not elimi ivone, false negat theresa resul ts. A negat theresa resul t does not precl ude the prese nce and/o r devel opmen t of disea se, since the prese nce of abnor mal cells in the sampl e depen ds on the locat ion of the lesio n and sampl ing techn ique. Merlin nued regul ar scree gómez is the best metho d of cance r preve ntion . If repor alexey cytol ogic findi ng do not corre late with physi zaira and/o r histo rical findi ngs, furth er inves tigat ion is recom estefanía d, as clini nilson warra nted. Not Available [facility] (Lab) [address], [place], [address], 04/17/2024 14:19:22 04/12/19 25 04/12/2024 pregn lennie test, urine HCG negati ve Not Available [facility] [address], [place], [address], 04/12/2024 09:58:51 02/16/20 22 02/15/2022 MAMMO , scree gómez, bilat eral No observ ation record ed. [address], [address], 02/24/2022 13:30:59 02/17/20 22 02/15/2022 MAMMO , scree gómez, bilat eral No observ ation record ed. [address], [address], 02/24/2022 13:31:00 03/26/19 23 03/25/2022 imagi ng/di chelsea tic resul t No observ ation record ed. [address], [address], 04/17/2024 14:38:14 Result Notes None recorded. Problems Name Problem SNOMED Code Status Onset Date Resolution Date Notes Provider Name and Address Organization Details Recorded Time Routine antenata l care Completed 201010/22/2020 Supervisi on of other normal ;Practice ID: 0001 Heather zhong [facility] 10:26:37 anatomy study Completed 201010/22/2020 [facility] ANATMC SURVEY;Pr actice ID: 0001 Heather zhong [facility] 10:26:16 Vaginiti s and vulvovag initis Completed 201010/22/2020 Vaginitis and vulvovagi nitis, unspecifi ed;Practi ce ID: 0001 Heather zhong [facility] 10:26:50 Liver disorder in pregnanc y - not delivere d [id number] Completed 201010/22/2020 Antepartu m liver disorders ;Practice ID: 0001 Heather Small [facility] 10:26:21 Delivery normal [id number] Completed 201010/22/2020 Normal delivery; Practice ID: 0001 Heather Small trevin [facility] 10:26:11 Single live [id number] Completed 201010/22/2020 Mother with single liveborn; Practice ID: 0001 Heather zhong [facility] 10:26:42 Removal of intraute rine device Completed 201610/22/2020 Encounter for removal of intrauter ine contracep tive device;Pr actice ID: 0001 Heather zhong [facility] 10:26:35 Insertio n of intraute rine contrace ptive device Completed 201610/22/2020 Encounter for insertion of intrauter ine contracep tive device;Pr actice ID: 0001 Heather zhong [facility] 10:26:19 Pregnanc y test negative [id number] Completed 201610/22/2020 Encounter for test, result negative; Practice ID: 0001 Heather zhong [facility] 10:26:29 Contrace ptive sheath status [id number] Completed 201610/22/2020 Encounter for routine checking of intrauter ine contracep dev;Pract ice ID: 0001 Heather Small [facility] 10:26:[address] Concept Completed 201810/22/2020 Encntr for child care specialist exam (general) (routine) w/o abn findings; Practice ID: 0001 Heather zhong [facility] 10:26:46 Screenin g for malignan t neoplasm of rectum Completed 201810/22/2020 Encounter for screening for malignant neoplasm of rectum;Pr actice ID: 0001 Heather Small [facility] 10:26:41 Hypertro phy of clitoris [id number] Completed 201910/22/2020 Oth noninflam matory disorders of vulva and perineum; Practice ID: 0001 Heather Small [facility] 10:26:18 Body mass index 30+ - obesity [id number] Completed 201810/22/2020 Body mass index (BMI) 36.0-36.9 , adult;Rec orded Elsewhere : No Locati on: [facility] So urce: EHR Chron ic: N Practic e ID: 0001 Bill able Time: 08:30:00 AM [facility] 10:26:[address] Concept Completed 201810/22/2020 Encntr for general adult medical exam w/o abnormal findings; Recorded Elsewhere : No Locati on: [facility] So urce: EHR Chron ic: N Practic e ID: 0001 Bill able Time: 08:30:00 AM Heather Small [facility] 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 10:26:47 Obesity [id number] Completed 201410/22/2020 Obesity;R ecorded Elsewhere : No Locati on: [facility] So urce: EHR Chron ic: N Practic e ID: 0001 Bill able Time: 10:45:00 AM Heather Small [facility] 10:26:26 Family planning surveill ance Completed 201110/22/2020 Contracep tive surveilla nce, unspecifi ed;Record ed Elsewhere : No Locati on: [facility] So urce: EHR Chron ic: N Practic e ID: 0001 Bill able Time: 08:30:00 AM Heather Small [facility] 10:26:14 Eruption [id number] Completed 201110/22/2020 Rash and other nonspecif ic skin eruption; Recorded Elsewhere : No Locati on: [facility] So urce: EHR Chron ic: Y Practic e ID: 0001 Bill able Time: 12:00:00 PM Heather Small [facility] 10:26:13 Screenin g for malignan t neoplasm of cervix Completed 201110/22/2020 Screening for malignant neoplasms of the cervix;Re corded Elsewhere : No Locati on: [facility] So urce: EHR Chron ic: N Practic e ID: 0001 Bill able Time: 09:30:00 AM Heather Small [facility] 10:26:39 Postpart um care Completed 201110/22/2020 Routine postpartu m follow-up ;Recorded Elsewhere : No Locati on: [facility] So urce: EHR Chron ic: N Practic e ID: 0001 Sung beck Time: 09:30:00 AM [facility] 10:26:27 Amenorrh ea [id number] Completed 201010/22/2020 AMENORRHE A;Practic e ID: 0001 Heather Small [facility] 10:26:06 Pregnanc y test positive [id number] Completed 201010/22/2020 Positive Test;Prac zuleima ID: 0001 Heather Small [facility] 10:26:31 Low back pain [id number] Completed 201010/22/2020 Lumbago;P mesha ID: 0001 Heather Small [facility] 10:26:23 Adult health examinat ion Completed 201010/22/2020 Routine general medical examinati on at a health care facility; Practice ID: 0001 Heather Small [facility] 10:26:04 Uterine size for dates discrepa nyy [id number] Completed 201010/22/2020 UTERINE SIZE MAYA-ANTEP AR;Practi ce ID: 0001 Heather Small [facility] 10:26:49 Primigra tai [id number] Completed 201010/22/2020 Supervisi on of normal first ;Practice ID: 0001 Heather Small [facility] 10:26:34 Neoplasm of uncertai n behavior of female genital organ [id number] Completed 07/12/ 2013 10/22/2020 Lesion Uncertain Genital;Rashawn zimmer ID: 0001 Heather Small [facility], [facility] 10:26:24 Problem Notes None recorded. Procedures Surgical History Date Name Laterality Status Provider Name and Address Organization Details Recorded Time 025 IUD Removal completed LEE ANN Alfred [address], [place], [address], [facility] 04/12/2024 09:56:47 021 Date of Last Pap Smear completed Heatherkishor Santana [facility] 08/04/2021 15:06:37 021 Date of Last Mammogram completed BENNIE Sadler [facility] 04/12/2024 09:26:07 016 completed [facility] 10/22/2020 10:46:11 016 repair of stress incontinence by suprapubic sling completed [facility] 10/22/2020 10:50:41 013 biopsy of vulva completed [facility] 10/22/2020 10:52:00 008 removal of silastic tubes from ear completed [facility] 10/22/2020 10:50:12 006 Cholecystectomy completed [facility] 10/22/2020 10:49:52 Imaging Results Imaging Date Name Status LastModified by Organiz ation Details LastModified Time 02/15/2022 MAMMO, screening, bilateral completed [place] [id number] [facility] [address] [place] [address], [address], 02/24/2022 13:30:59 02/15/2022 MAMMO, screening, bilateral completed [place] [id number] [facility] [address], [place], [address], 02/24/2022 13:31:00 03/25/2022 imaging/diagno stic result completed [facility] [address], [place], [address], 04/17/2024 14:38:14 Procedure Notes None recorded. Medical Equipment None Reported. Allergies No known drug allergies Medications Name Sig Start Date Stop Date Status Note LastModified by Organization Details LastModified Time tretinoin 0.1 % topical cream APPLY CREAM TOPICALL Y ONCE DAILY AT BEDTIME active Not Available Not Available No t Available bupropion HCl SR 150 mg tablet,12 hr sustained -release TAKE 1 TABLET BY MOUTH TWICE DAILY 08/05 completed Not Available Not Available Not Available Colace 100 mg capsule take 1 capsule (100MG) by oral route every day at bedtime as needed 02/22 completed Prescrib ed Elsewher e: Yes Loca tion: [facility] odify By: michael muñozi Newo unter DateTime : 03/08/19 12 12:00:00 PM Not Available Not Available Not Available nabumeton e 750 mg tablet TAKE 1 TABLET BY MOUTH TWICE DAILY 10/22 completed Not Available Not Available Not Available tizanidin e 2 mg tablet TK 1 T PO D PRF MUSCLE SPASTICI TY 12/22 completed Not Available Not Available Not Available valacyclo vir 1 gram tablet TAKE 1 TABLET BY MOUTH EVERY DAY 10/22 completed Not Available Not Available Not Available Lotrisone 1 %-0.05 % topical cream apply by topical route 2 times every day for 2 weeks to the affected and surround ing areas of skin in the morning and evening 09/28 completed Prescrib ed Elsewher e: No Locat ion: [facility] odify By: tian tz Trae nter DateTime : 09/16/19 13 08:00:00 AM Not Available Not Available Not Available Nystop 100,000 unit/gram topical powder APPLY TOPICALL Y TWICE DAILY 10/22 completed Not Available Not Available Not Available fluconazo le 200 mg tablet take 1 tablet by oral route on days 1, 4 & 7. 10/22 completed Prescrib ed Elsewher e: No Locat ion: [facility] odify By: cfriedcarla Wolffo unter DateTime : 05/15/19 08:45:00 AM Not Available Not Available Not Available Medrol (Gregorio) 4 mg tablets in a dose pack take as directed 09/15 completed Prescrib ed Elsewher e: No Locat ion: [facility] odify By: hang yo DateTime : 09/07/19 13 08:30:51 AM Not Available Not Available Not Available Paxil 10 mg/5 mL oral suspensio n take 10 millilit er by oral route every day 10/22 completed Prescrib ed Elsewher e: Yes Loca tion: [facility] odify By: britton davisuntcarla DateTime : 05/15/19 08:45:00 AM Not Available Not Available Not Available clobetaso l 0.05 % topical cream apply by topical route 2 times every day a thin layer to the affected area(s) 11/01 completed Prescrib ed Elsewher e: No Locat ion: [facility] odify By: jlpuricrayray Tarango unter DateTime : 04/24/19 13 09:00:00 AM Not Available Not Available Not Available Diflucan 150 mg tablet take 1 tablet by oral route once 10/26 completed Prescrib ed Elsewher e: No [facility]at [facility]: [facility] odify By: karol yo DateTime : 10/26/19 15 04:04:31 PM Not Available Not Available Not Available methylphe nidate ER 54 mg tablet,ex tended release 24 hr TAKE 1 TABLET BY MOUTH IN THE MORNING active Not Available Not Available No t Available omeprazol e 40 mg capsule,d elayed release TAKE 1 CAPSULE BY MOUTH TWICE DAILY active Not Available Not Available No t Available phentermi ne 30 mg capsule take 1 capsule by oral route every day before breakfas t 05/08 completed Prescrib ed Elsewher e: Yes Loca tion: [facility] odify By: britton yo DateTime : 04/15/19 17 08:45:00 AM Not Available Not Available Not Available Nexium 20 mg capsule,d elayed release take 1 capsule by ORAL route every day 10/22 completed Prescrib ed Elsewher e: Yes Loca tion: [facility] odify By: minnie yo DateTime : 09/29/19 11 03:45:00 PM Not Available Not Available Not Available nystatin- triamcino lone 100,000 unit/gram -0.1 % topical ointment APPLY TOPICALL Y TO THE AFFECTED AREA THREE TIMES DAILY 12/22 completed Not Available Not Available Not Available alprazola m 0.5 mg tablet TAKE 1 TABLET BY MOUTH THREE TIMES DAILY active Not Available Not Available No t Available Metrogel Vaginal 0.75 % (37.5 mg/5 gram) insert 1 applicat orful (37.5MG) by vaginal route every day at bedtime 08/24 completed Prescrib ed Elsewher e: No Locat ion: [facility] odify By: hang yo DateTime : 03/01/20 12 09:22:50 AM Not Available Not Available Not Available amitripty line 25 mg tablet take 1 tablet (25MG) by oral route every day at bedtime 09/15 completed Prescrib ed Elsewher e: No Locat ion: [facility] odify By: tian alberto DateTime : 09/16/19 13 08:00:00 AM Not Available Not Available Not Available mebendazo le 100 mg chewable tablet chew 1 tablet (100MG) by oral route 2 times every day for 3 days in the morning and evening 08/26 completed Prescrib ed Elsewher e: No Locat ion: [facility] odify By: tian alberto DateTime : 08/25/19 13 08:30:00 AM Not Available Not Available Not Available Flagyl 500 mg tablet take 1 tablet (500MG) by oral route 2 times every day 08/24 completed Prescrib ed Elsewher e: No Locat ion: [facility] odify By: anbirk E ncounter DateTime : 04/28/19 13 01:42:13 PM Not Available Not Available Not Available phenazopy ridine 100 mg tablet TAKE 1 TABLET BY MOUTH THREE TIMES DAILY NEEDED FOR PAIN active Not Available Not Available No t Available paroxetin e 20 mg tablet TAKE 1 TABLET BY MOUTH DAILY 08/05 completed Not Available Not Available Not Available Wellbutri n 75 mg tablet take 1 tablet by ORAL route 3 times every day 10/26 completed Prescrib ed Elsewher e: Yes Loca tion: [facility] odify By: karol Seo ncounter DateTime : 09/29/19 11 03:45:00 PM Not Available Not Available Not Available Albenza 200 mg tablet take 2 tablet (400MG) by oral route then repeat in two weeks 09/15 completed Prescrib ed Elsewher e: No Locat ion: [facility] odify By: hang Seo ncounter DateTime : 08/26/19 13 10:40:16 AM Not Available Not Available Not Available gabapenti n 300 mg capsule TAKE 1 CAPSULE BY MOUTH THREE TIMES DAILY active Not Available Not Available No t Available furosemid e 20 mg tablet TK 1/2 T PO QAM 08/05 completed Not Available Not Available Not Available clobetaso l 0.05 % topical ointment APPLY THIN LAYER TOPICALL Y TO THE AFFECTED AREA TWICE DAILY active Not Available Not Available No t Available Vitamin D2 1,250 mcg (50,000 unit) capsule take 1 capsule by oral route every week 02/22 completed Prescrib ed Elsewher e: Yes Loca tion: [facility] odify By: jlpgilda lli Enco unter DateTime : 06/03/19 12 08:30:00 AM Not Available Not Available Not Available ketoconaz ole 2 % topical cream APPLY TOPICALL Y TO THE AFFECTED AREA TWICE DAILY 10/22 completed Not Available Not Available Not Available Cleocin T 1 % lotion apply by topical route 2 times daily a thin layer to the affected area(s), then 2x/wk at night 10/22 completed Prescrib ed Elsewher e: No Locat ion: [facility] odify By: marnie santos Enco unter DateTime : 05/15/19 20 08:45:00 AM Not Available Not Available Not Available Bactrim DS 800 mg-160 mg tablet take 1 tablet by oral route every 12 hours 05/18 completed Prescrib ed Elsewher e: No Locat ion: [facility] odify By: clareroseanna santos Enco unter DateTime : 05/15/19 20 08:45:00 AM Not Available Not Available Not Available Gyne-Lotr imin 2 % vaginal cream apply by Topical route every morning for 7 days may use prn for itching 04/30 completed Prescrib ed Elsewher e: No Locat ion: [facility] odify By: aleick Encount er DateTime : 04/24/19 13 09:00:00 AM Not Available Not Available Not Available Lexapro 5 mg/5 mL oral solution take 10 millilit er by oral route every day 05/14 completed Prescrib ed Elsewher e: Yes Loca tion: [facility] se[facility] odify By: clareroseanna santos Enco unter DateTime : 10/27/19 16 08:45:00 AM Not Available Not Available Not Available Wellbutri n XL 150 mg 24 hr tablet, extended release take 1 tablet by oral route every day 10/22 completed Prescrib ed Elsewher e: Yes Loca tion: [facility] se[facility] odify By: britton davisuntcarla DateTime : 05/15/19 20 08:45:00 AM Not Available Not Available Not Available - Folic Acid 27 mg-1 mg tablet take 1 tablet by ORAL route every day 02/22 completed Prescrib ed Elsewher e: Yes Loca tion: [facility] se[facility] odify By: jlpgilda Wolffo unter DateTime : 09/29/19 11 03:45:00 PM Not Available Not Available Not Available nitrofura ntoin monohydra te/macroc rystals 100 mg capsule TAKE 1 CAPSULE BY MOUTH EVERY 12 HOURS WITH FOOD FOR 5 DAYS active Not Available Not Available No t Available duloxetin e 30 mg capsule,d elayed release TAKE 1 CAPSULE BY MOUTH DAILY active Not Available Not Available No t Available duloxetin e 60 mg capsule,d elayed release TAKE 1 CAPSULE BY MOUTH ONCE DAILY active Not Available Not Available No t Available Cymbalta 12/22 completed Not Available Not Available Not Available Vyvanse 70 mg capsule TAKE 1 CAPSULE BY MOUTH DAILY active Not Available Not Available No t Available cholecalc iferol (vitamin D3) 1,250 mcg (50,000 unit) capsule TAKE ONE CAPSULE BY MOUTH WEEKLY 12/22 completed Not Available Not Available Not Available Vyvanse 20 mg capsule take 2 capsule by ORAL route every day in the morning 05/08 completed Prescrib ed Elsewher e: Yes Loca tion: [facility] odify By: britton Seo ncounter DateTime : 09/29/19 11 03:45:00 PM Not Available Not Available Not Available Prenate Elite (New Formulati on) 27 mg-1 mg tablet take 1 tablet by oral route every day 02/22 completed Prescrib ed Elsewher e: No Locat ion: [facility] odify By: michael velazquez Enco unter DateTime : 02/24/20 11 06:14:22 PM Not Available Not Available Not Available lidocaine 5 % topical ointment apply by Topical route 2 times every day 05/14 completed Prescrib ed Elsewher e: No Locat ion: [facility] odify By: marnie santos Enco unter DateTime : 09/20/19 13 12:59:25 PM Not Available Not Available Not Available Zepbound 10 mg/0.5 mL subcutane ous pen injector active Not Available Not Available Not Available Zepbound 5 mg/0.5 mL subcutane ous pen injector INJECT 5 MG UNDER THE SKIN ONE DAY A WEEK active Not Available Not Available No t Available Zepbound 7.5 mg/0.5 mL subcutane ous pen injector INJECT 1 SYRINGE SUBCUTAN EOUSLY ONCE A WEEK active Not Available Not Available No t Available Vitals Date Recorded Body height Body mass index (BMI) Body weight Systolic blood pressure Diastolic blood pressure Provider Name and Address Organization Details Last Updated DateTime 10/22/2020 171.45 cm 37.8 kg/m2 486533.1 3 g 128 mm[Hg] 75 mm[Hg] [facility] 1 10:46:04 Date Recorded Body height Body mass index (BMI) Body weight Systolic blood pressure Diastolic blood pressure Provider Name and Address Organization Details Last Updated DateTime 08/05/2021 171.45 cm 36.5 kg/m2 502541.9 5 g 120 mm[Hg] 77 mm[Hg] [facility] 2 12:37:08 Date Recorded Body height Body weight Body mass index (BMI) Provider Name and Address Organization Details Last Updated DateTime 12/22/2021 172.72 cm 775012.88 g 34.4 kg/m2 [facility] 12/22/2021 11:05:36 Date Recorded Systolic blood pressure Diastolic blood pressure Provider Name and Address Organization Details Last Updated DateTime 12/22/2021 126 mm[Hg] 74 mm[Hg] Sheryl Brennan KRISTIN- [address], [place], [address], [facility] 12/22/2021 11:26:35 Date Recorded Body height Body mass index (BMI) Body weight Systolic blood pressure Diastolic blood pressure Provider Name and Address Organization Details Last Updated DateTime 04/12/2024 172.72 cm 26.2 kg/m2 36308.89 g 105 mm[Hg] 71 mm[Hg] BENNIE Sadler [facility] 5 09:24:48 Social History Question Answer Notes LastModified by Organizat ion Details LastModified Time Do You Have An Advance Directive? No Information not available 10/22/2020 What Is Your Level Of Alcohol Consumption? Moderate Information not available 10/22/2020 How Many Years Have You Consumed Alcohol? 20 Information not available 10/22/2020 Are You Blind Or Do You Have Difficulty Seeing? No Information not available 10/22/2020 What Is Your Level Of Caffeine Consumption? Heavy Information not available 10/22/2020 In The 14 Days Before Symptom Onset, Have You Had Close Contact With A Laboratory-confir med COVID-19 While That Case Was Ill? No Information not available 10/22/2020 In The 14 Days Before Symptom Onset, Have You Had Close Contact With A Person Who Is Under Investigation For COVID-19 While That Person Was Ill? No Information not available 10/22/2020 Have You Been To An Area Known To Be High Risk For COVID-19? No Information not available 10/22/2020 Are You Deaf Or Do You Have Serious Difficulty Hearing? No Information not available 10/22/2020 What Type Of Diet Are You Following? REGULAR Information not available 10/22/2020 What Is The Highest Grade Or Level Of School You Have Completed Or The Highest Degree You Have Received? 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 Yes Information not available 10/22/2020 Do You Use Protection During Sex? No Information not available 10/22/2020 Do You Use Your Seat Belt Or Car Seat Routinely? Yes Information not available 10/22/2020 Do You Have Smoke And Carbon Monoxide Detectors In Your Home? Yes Information not available 10/22/2020 At What Age Did You Start Smoking Tobacco? 17 Information not available 10/22/2020 How Much Tobacco Do You Smoke? No Information not available 10/22/2020 Do You Feel Stressed (tense, Restless, Nervous, Or Anxious, Or Unable To Sleep At Night)? [id number] Information not available 10/22/2020 Do You Use Any Illicit Or Recreational Drugs? No Information not available 10/22/2020 Do You Use Sunscreen Routinely? Yes Information not available 10/22/2020 How Many Years Have You Smoked Tobacco? 20 Information not available 10/22/2020 Have You Used IV Drugs? No Information not available 10/22/2020 Sex: Unknown Functional Status Question Answer Note LastModified by Organizat ion Details LastModified Time Do you have difficulty walking or climbing stairs? No Information not available 08/05/2021 Are you able to walk? YESWOREST Information not available 10/22/2020 Are you able to care for yourself? Yes Information not available 08/05/2021 Do you have difficulty dressing or bathing? No Information not available 08/05/2021 What is your exercise level? Moderate Information not available 10/22/2020 Mental Status None recorded. Family History Relationship Description Onset Age of this Age Resolved Age Notes LastModified by Organization Details LastModified Time Maternal Aunt Malignant neoplasm of liver Not available 2021 16:16:32 Maternal Aunt Malignant tumor of colon Not available 2021 16:16:40 Maternal Aunt Malignant tumor of breast Not available 2021 16:16:45 Maternal Grandfather Malignant tumor of lung Not available 2021 16:17:04 Maternal Grandfather Malignant tumor of pharynx Not available 2021 16:17:13 Maternal Grandmother Malignant tumor of colon Not available 2021 16:17:22 Mother Malignant tumor of colon Not available 2021 16:17:25 Mother Malignant tumor of breast Not available 2021 16:17:36 Paternal Grandmother Malignant tumor of breast Not available 2021 16:17:45 Paternal Grandmother Hypertensive disorder Not available 2021 16:17:52 Medical History Condition Response Allergies (Food, seasonal, environmental ) Y Other Y Acid Reflux (GERD) Y History of abnormal pap Y Gynecological History Statement/Question Response Flow Light Date of Last Mammogram 10/17/2020 Date of LMP 03/29/2024 N On BCP's at Conception? N STIs/STDs N Was last menstrual period normal Y HPV Vaccine N Duration of Flow (days) 3 Current Control Method IUD Age at First Child 29 Are cycles usually normal Y Sexually Active? Y IUD Menses Monthly Y Age of first menstrual cycle 15 Date of Last Pap Smear 10/22/2020 Sexual Problems? N LMP Definite Desired Control Method IUD 03/07/2015 N Obstetrics History GPAL:G 3 P 0 0 0 0 Past Encounters Encounter ID Performer Location Encounter Start Date Encounter Closed Date Diagnosis/Indication Diagnosis SNOMED-CT Code Diagnosis ICD10 Code [id number] [address] [address] 10/22/2020 10:15:14 10/22/2020 11:09:52 Gynecologic examination 99132083 Z01.419 Suggested Calcium with Vitamin D 1200-1500m g daily. Patient advised to get an annual flu shot in the fall and she could obtain at [facility] or [facility]. Also to obtain TDap vaccinatio n if you have not had one in the last 10 years. Recommend yearly mammograms . Encouraged monthly self breast exams. Encourage safe sexual practices, to use condoms and limit partners if not already in a monogamous relationsh ip. Engage in daily exercise of low impact aerobic exercise 45-60 minutes 4-5 times weekly. Avoid tobacco and illicit drugs as well as using moderation with alcohol intake less than 1-2 8 oz beverages daily. This lifestyle behavior pattern will lead to less health conditions and longer life span. If BMI greater than 25 weight watchers or dietary consult advised. All questions have been answered. Patient appears to understand informatio n, but if you have any questions please call or respond to this email. Pap/hpv sentSTD declinedMa mmo Done (2020) Genital li royal sclerosus 070804289 L90.0 [id number] LEE ANN Alfred [facility]ix [address] [address] 08/05/2021 12:21:36 08/05/2021 13:56:40 Premenstrual dysphoric disorder 975754 F32.81 Lichen sclerosus 8110533 L90.0 Patient has been biopsied and diagnosed with Lichen Sclerosus. She was seeing a vulvar rn complex care at [facility].She is having significan t itching.We discussed vulvar care guidelines .She should use crisco twice daily, and then clobetasol twice daily.Will have patient RTC in 2 weeks to assess response to treatment. Patient has Mirena IUD for control. Is concerned about mood changes/PM S, is wondering if she is approachin g menopause. She would like hormone levels done.RTC in 2 weeks Time spent with the patient was 35 minutes [id number] [facility] [address] [address] 12/22/2021 10:44:27 12/22/2021 12:31:40 Gynecologic examination [id number] Z01.419 Z11.51 Suggested Calcium with Vitamin D 1200-1500m g daily. Patient advised to get an annual flu shot in the fall and she could obtain at [facility] or [facility]. Also to obtain TDap vaccinatio n if you have not had one in the last 10 years. Recommend yearly mammograms . Encouraged monthly self breast exams. Encourage safe sexual practices, to use condoms and limit partners if not already in a monogamous relationsh ip. Engage in daily exercise of low impact aerobic exercise 45-60 minutes 4-5 times weekly. Avoid tobacco and illicit drugs as well as using moderation with alcohol intake less than 1-2 8 oz beverages daily. This lifestyle behavior pattern will lead to less health conditions and longer life span. If BMI greater than 25 weight watchers or dietary consult advised. All questions have been answered. Patient appears to understand informatio n, but if you have any questions please call or respond to this email. Pap/hpv q3yrs per asccp unless otherwise indicatedS TD Screen declinedGe netic Screen tested negColon Screen PCPDexa Screen naRoutine Labs PCPMammo orderedA Mirena IUD prevents for up to 8 years, and also helps with heavy periods for up to 5 years in women who choose an IUD for control. Genital li royal sclerosus 483927408 L90.0 Stable on VCG's & cloebetaso l prn useRF sent [id number] LEE ANN Alfred [facility] [address] [address] 04/12/2024 09:11:52 04/12/2024 10:00:21 Gynecologic examination [id number] Z01.419 WWEPap - done todaySTI screen - declinedMa mmogram - order givenColon cancer screening - UTD/PCPRou franny labs - UTD/PCPRTC in 1 yr or sooner if needed Suggested Calcium with Vitamin D daily. Patient advised to get an annual flu shot in the fall and she could obtain at local pharmacy. Also to obtain TDap vaccinatio n if you have not had one in the last 10 years. Recommend yearly mammograms . Encouraged monthly self breast exams. Encourage safe sexual practices, to use condoms and limit partners if not already in a monogamous relationsh ip. Engage in regular exercise. Avoid tobacco and illicit drugs. This lifestyle behavior pattern will lead to less health conditions and longer life span. If BMI greater than 25 dietary consult advised. All questions have been answered. Screening for malignant neoplasm of breast 201296135 Z12.39 Removal of intrauterine contraceptive device [id number] Z30.432 Pt desired IUD removalUPT (-)consent signedIUD removedalt ernative BC options discussed, opts to use condoms Health Concerns Section Related Observation LastModified by Organization Detai ls LastModified Time None Recorded Concern Status LastModified by Organization Details LastModified Time None Recorded Advance Directives Directive N: Payers Encounter Date Sequence Insurance Name Policy Number Policy Hi Covered Member ID Hi Member ID Guarantor Name 10/22/2020 1 [place] [id number] Priyanka Chu [id number] Kwesi L Kountze 10/22/2020 2 [facility] [id number] Kwesi Kountze [id number] Kwesi L Kountze 08/05/2021 1 [place] [id number] Priyanka Chu [id number] Kwesi L Kountze 08/05/2021 2 [facility] [id number] Kwesi Kountze [id number] Kwesi L Chu 12/22/2021 1 [place] [id number] Priyanka Chu [id number] Kwesi L Kountze 12/22/2021 2 [facility] [id number] Kwesi Chu [id number] Kwesi L Chu 04/12/2024 2 [employer] Priyanka L Chu [id number] Kwesi L Kountze 04/12/2024 1 [place] [id number] Priyanka Kountze [id number] Kwesi L Chu Notes Date Note Type Note Provider Name and Address Organization Details Recorded Time 10/22/2020 text/html Annual GYNReport ed bypatient.Menstrual cycle:Normal menses Urinary symptoms:No hematuria; No incontinence Vulva:No genital lesion Vagina:Normal vaginal discharge Breast:No breast pain; No breast lump; No nipple discharge Current Contraception:Intrau terine device (iud) (04/16/2016 Mirena IUD) Sexual complaints:No sexual complaints; No pain during intercourse; Normal libido Menopausal Symptoms:No menopausal symptoms; Normal vaginal lubrication Psychological symptoms:No depression; No anxiety; No PMDD Preventive measures:Encourage self breast examination; Encourage regular exercise; Encourage no tobacco use; Encourage regular mammograms starting age 40; Followed with Q3 year pap smear and high risk HPV typing Wants referral to VUlvar specialist for additional evaluation of LS. PENG Perez [address], [place], [address], [facility] 10/22/2020 11:07:50 08/05/2021 text/html Vaginal itching. Has been diagnosed with lichens sclerosus. Has seen a vulvar rn complex care in the past. LEE ANN Alfred [address], [place], [address], [facility] 08/05/2021 13:48:03 12/22/2021 text/html Annual GYNReport ed bypatient.Menstrual cycle:Normal menses (Amenorrheic on IUD) Urinary symptoms:No hematuria; No incontinence Vulva:No genital lesion Vagina:Normal vaginal discharge Breast:No breast pain; No breast lump; No nipple discharge Current Contraception:Satisf ied with current contraception; Intrauterine device (iud) Sexual complaints:No sexual complaints; No pain during intercourse; Normal libido Menopausal Symptoms:No menopausal symptoms; Normal vaginal lubrication Psychological symptoms:No depression; No anxiety; No PMDD Preventive measures:Encourage self breast examination; Encourage regular exercise; Encourage no tobacco use; Encourage regular mammograms starting age 40; Needs to schedule mammogram [address] [place], [address], [facility] 12/22/2021 11:27:53 04/12/2024 text/html Annual GYNReport ed bypatient.Menstrual cycle:Normal menses Urinary symptoms:No hematuria; No incontinence Vulva:No genital lesion Vagina:Normal vaginal discharge Breast:No breast pain; No breast lump; No nipple discharge Current Contraception:Intrau terine device (iud) Sexual complaints:No sexual complaints; No pain during intercourse; Normal libido Menopausal Symptoms:No menopausal symptoms; Normal vaginal lubrication Psychological symptoms:No depression; No anxiety; No PMDD Preventive measures:Encourage self breast examination; Encourage regular exercise; Encourage no tobacco use; Encourage regular mammograms starting age 40Notes:48yo wweBC - mirena IUD, inserted 04/16/2016desires removal, wants to use Condoms for BCmammogram - scheduled for next weekcolonoscopy UTD, 2023fam hx of BC and colon cancer, pt has had negative genetic testing LEE ANN Alfred [address], [place], [address], [facility] 04/12/2024 14:24:59 OBGyn Episode Ob Episode Information Episode Created Date Number of Fetuses Patient Bloodtype Patient rh Status Prepregnancy Weight lbs Domestic Partner Domestic Partner Phone Father Name Customer Support Assistant Status 04/12/19 25 1 CLOSED Fetus Data First Name Last Name Admitted to NICU Weight (g) Sex Living Outcome Pediatric Complications Fetus ID Race Codes Race Delivery Type M Full Term [id number] Mikel Calculation Initial Mikel Date Initial Exam Date Initial Exam Provider Initial Ultrasound Date Last Menstrual Period Date Ultra Sound Weeks Gestation 0 Eighteen To Twenty Week Mikel Update Ultra Sound Date Fundal Height At Umbil Quickening Date Ultra Sound Latest Weeks Gestation Final Mikel Confirmed By Final Mikel Confirmed Date Final Mikel Date Ultra Sound Latest Days Gestation 0 0 Menstrual History Last Menstrual Date Menses Monthly On Bcp Conception Prior Menses Frequency Hcg Plus Date Menarche Onset Age Delivery Information Delivery Date Delivery Type Labor Anesthesia Weeks Gestation Incision Type Labor Labor Length Hrs Delivered By Post Complications Tubal Sterilization Discharge Date Comments 5 Discharge Information Feeding Method Contraceptive Method Maternal HG B and HCT Levels Ob Episode Information Episode Created Date Number of Fetuses Patient Bloodtype Patient rh Status Prepregnancy Weight lbs Domestic Partner Domestic Partner Phone Father Name Customer Support Assistant Status 04/12/19 25 1 CLOSED Fetus Data First Name Last Name Admitted to NICU Weight (g) Sex Living Outcome Pediatric Complications Fetus ID Race Codes Race Delivery Type 3175.14 4 M Full Term [id number] Vaginal Delivery Mikel Calculation Initial Mikel Date Initial Exam Date Initial Exam Provider Initial Ultrasound Date Last Menstrual Period Date Ultra Sound Weeks Gestation 0 Eighteen To Twenty Week Mikel Update Ultra Sound Date Fundal Height At Umbil Quickening Date Ultra Sound Latest Weeks Gestation Final Mikel Confirmed By Final Mikel Confirmed Date Final Mikel Date Ultra Sound Latest Days Gestation 0 0 Menstrual History Last Menstrual Date Menses Monthly On Bcp Conception Prior Menses Frequency Hcg Plus Date Menarche Onset Age Delivery Information Delivery Date Delivery Type Labor Anesthesia Weeks Gestation Incision Type Labor Labor Length Hrs Delivered By Post Complications Tubal Sterilization Discharge Date Comments 1 39 Discharge Information Feeding Method Contraceptive Method Maternal HG B and HCT Levels
--- OUTSIDE RECORDS SUMMARY | 2024-04-26 07:30 | XMS_ITS | Referral Summary ---
Author Organization [facility] Address [address] [place] [address] Care Team Providers Care Signalling And Communications Engineer Name Role Phone Bib Reaves MD Primary Care Provider [phone] Source Comments [facility],non-owned Affiliates and Associated Physician Practices is amultiple site organization consisting of ambulatory clinics and hospital sitesin [place], [place], [place] and [place]. This disclosure is being madepursuant to the Care Everywhere program and may not contain all information available regarding this patient. Last updated 17.[facility] Allergies No known active allergies Medications * Be aware that medications may not be up to date on this document. Alwaysverify current medications with the patient. Medication Sig Dispensed Refills Start Date End Date Status buPROPion SR 12hr (WELLBUTRIN-SR) 150 MG tablet Take 150 mg by mouth daily. Active esomeprazole (NEXIUM) 20 MG capsule Take 20 mg by mouth daily. Active multivitamin daily tablet Take 1 Tab by mouth daily. Active lisdexamfetamine (VYVANSE) 30 MG capsule Take 30 mg by mouth every morning. Active oxycodone-acetaminophe n (PERCOCET) 5-325 MG tablet Take 1 Tab by mouth every 6 hours as needed for Pain. 30 0 03/26/2009 Active Social History Tobacco Use Types Packs/Day Years Used Date Smoking Tobacco: Never Alcohol Use Standard Drinks/Week Comments No 0 (1 standard drink = 0.6 oz pur e alcohol) Sex and Gender Information Value Date Recorded Sex Assigned at Not on file Gender Identity Not on file Sexual Orientation Not on file Last Filed Vital Signs Vital Sign Reading Time Taken Comments Blood Pressure 118/78 09/27/2012 10:12 AM CDT Pulse 48 03/26/2009 9:37 AM [employer] Temperature 36.2 C (97.2 F) 03/26/2009 8:27 AM [employer] Respiratory Rate 16 03/26/2009 9:37 AM [employer] Oxygen Saturation 97% 03/26/2009 9:37 AM [employer] Inhaled Oxygen Concentration - - Weight 89.8 kg (198 lb) 09/27/2012 10:12 AM CDT Height 175.3 cm (5' 9 ) 09/27/2012 10:12 AM CDT Body Mass Index 29.24 09/27/2012 10:12 AM CDT Plan of Treatment Not on file Care Teams Signalling And Communications Engineer Relationship Specialty Start Date End Date Bib Reaves MD [address] [place] [address] PCP - General 10/23/20
--- OUTSIDE RECORDS SUMMARY | 2024-04-26 07:30 | XMS_ITS | Patient Health Summary ---
Author Organization [facility] Address [address] [facility] [place] [address] Care Team Providers Care Test Bore Helper Name Role Phone Bib Reaves MD Primary Care Provider [phone] Note from [facility],non-owned Affiliates and Associated Physician Practices is amultiple site organization consisting of ambulatory clinics and hospital sitesin [place], [place], [place] and [place]. This disclosure is being madepursuant to the Care Everywhere program and may not contain all information available regarding this patient. Last updated 17.[facility] [employer] Allergies No known active allergies Medications * Be aware that medications may not be up to date on this document. Alwaysverify current medications with the patient. * buPROPion SR 12hr (WELLBUTRIN-SR) 150 MG tablet Take 150 mg by mouth daily. * esomeprazole (NEXIUM) 20 MG capsule Take 20 mg by mouth daily. * multivitamin daily tablet Take 1 Tab by mouth daily. * lisdexamfetamine (VYVANSE) 30 MG capsule Take 30 mg by mouth every morning. * oxycodone-acetaminophen (PERCOCET) 5-325 MG tablet(Started 03/26/2009) Take 1 Tab by mouth every 6 hours as needed for Pain. Social History Tobacco Use Types Packs/Day Years [...] AM CDT Pulse 48 03/26/2009 9:37 AM ABSENCE MANAGEMENT CONSULTANT Temperature 36.2 C (97.2 F) 03/26/2009 8:27 AM ABSENCE MANAGEMENT CONSULTANT Respiratory Rate 16 03/26/2009 9:37 AM ABSENCE MANAGEMENT CONSULTANT Oxygen Saturation 97% 03/26/2009 9:37 AM ABSENCE MANAGEMENT CONSULTANT Inhaled Oxygen Concentration - - Weight 89.8 kg (198 lb) 09/27/2012 10:12 AM CDT Height 175.3 cm (5' 9 ) 09/27/2012 10:12 AM CDT Body Mass Index 29.24 09/27/2012 10:12 AM CDT Procedures * REF LAB-SPECIMEN STATUS REPORT(Performed 09/27/2012) * CULTURE FUNGUS OTHER+FUNGUS SMEAR(Performed 09/27/2012) * CARDIAC RHYTHM STRIP ORDER(Performed 04/07/2009) * HCG URINE QUALITATIVE(Performed 03/26/2009) Performed for Unspecified Otitis Media Results * CULTURE FUNGUS OTHER+FUNGUS SMEAR (09/27/2012 11:13 AM CDT) Fungus Stain Final report [facility] ([facility]) Result 1 [facility] (BE[facility]ER) Comment:NICCI/Calcofluor prepa ration: no fungus observed. Culture Fungus (Mycology) Final report [facility] ([facility]) Result 1 [facility] ([facility]) Comment:No yeast or mold iso lated after 4 weeks. 09/27/2012 11:1 3 AM CDT 09/27/2012 6:35 PM CDT Narrative [facility] (BE[facility]) - 10/25/2012 3:20 PM CDT Performed at: [address] [place] [id number] Sponsorship Manager: Jordi Baker PhD, Phone: [phone] Terese Perrin APRN-POWER PLANT ASSISTANT LAB - MICRO BIOLOGY ORDERABLES [facility] ([place]) * REF LAB-SPECIMEN STATUS REPORT (09/27/2012 11:13 AM CDT) Specimen Status [facility] ([place]) Comment: Ambiguous Test Order Ambiguous Test Order A specimen was received for microbiology/virology testing with either an incorrect test number or without a written test number. The specimen has been processed according to the default policy listed in the Microbiology Appendix of the Directory of Services. Please use the correct test numbers to assure optimum processing of the specimens. 09/27/2012 11:1 3 AM CDT 09/27/2012 6:35 PM CDT Narrative [facility] ([place]) - 10/25/2012 3:20 PM CDT Performed at: [address] [id number] Sponsorship Manager: Jordi Baker PhD, Phone: [phone] Terese Perrin APRN-POWER PLANT ASSISTANT LAB - CHEMI STRY ORDERABLES Performing Organization Address City/[facility] Co de Phone Number [facility]) * CARDIAC RHYTHM STRIP ORDER (04/07/2009 7:29 PM ABSENCE MANAGEMENT CONSULTANT) Narrative 04/07/2009 7:29 PM ABSENCE MANAGEMENT CONSULTANT Ordered by an unspecified provider. Transcriptions Document, Scanned - 03/26/2009 12:00 AM ABSENCE MANAGEMENT CONSULTANT Scanned Document CARDIAC SERVICES ORD ERABLES * HCG URINE QUALITATIVE (03/26/2009 6:30 AM ABSENCE MANAGEMENT CONSULTANT) HCG Qual Urine Negative SEE BELOW [facility] Comment: Normal, Negative Pos, Sensitivity 25 MIU/ML Comment hCG Urine [facility] Comment: For optimal results, it is best to test the first urine voided in the morning because it contains the greatest concentration of hCG. URINE / Unknown 03/26/2009 6 :30 AM ABSENCE MANAGEMENT CONSULTANT 03/26/2009 6:37 AM ABSENCE MANAGEMENT CONSULTANT Adiel Hector MD LAB - URINALYSIS ORD ERABLES [facility] [address] [place] [address] Care Teams Test Bore Helper Relationship Specialty Start Date End Date Bib Reaves MD [address] [place] [address] PCP - General 10/23/20
--- OUTSIDE RECORDS SUMMARY | 2024-04-26 07:30 | XMS_ITS | Clinical Summary ---
Author Organization [facility] Address [address] [facility] [place] [address] Care Team Providers Care Service Parts Coordinator Name Role Phone Bib Reaves MD Primary Care Provider [phone] Source Comments [facility],non-owned Affiliates and Associated Physician Practices is amultiple site organization consisting of ambulatory clinics and hospital sitesin [place], [place], [place] and [place]. This disclosure is being madepursuant to the Care Everywhere program and may not contain all information available regarding this patient. Last updated 17.[employer] Allergies No known active allergies Medications * [...] AM CDT Pulse 48 03/26/2009 9:37 AM JOB PRESS OPERATOR Temperature 36.2 C (97.2 F) 03/26/2009 8:27 AM JOB PRESS OPERATOR Respiratory Rate 16 03/26/2009 9:37 AM JOB PRESS OPERATOR Oxygen Saturation 97% 03/26/2009 9:37 AM JOB PRESS OPERATOR Inhaled Oxygen Concentration - - Weight 89.8 kg (198 lb) 09/27/2012 10:12 AM CDT Height 175.3 cm (5' 9 ) 09/27/2012 10:12 AM CDT Body Mass Index 29.24 09/27/2012 10:12 AM CDT Plan of Treatment Health Maintenance Due Date Last Done Comments COLOGUARD (AGES 45-75) - COL ON CA SCREENING 1977 COLON MONITORING 1977 COLONOSCOPY - COLON CA SCREENING 1977 CT COLONOGRAPHY - COLON CA SCREENING 1977 Colorectal Cancer Screening 1977 FIT - COLON CA SCREENING 1977 FLEX SIG - COLON CA SCREENING 1977 LIPID TESTING 1977 MAMMOGRAM 1977 PAP SMEAR 1977 HIV SCREENING 1992 HEPATITIS C SCREENING 09/29/1995 DTAP/TDAP/TD VACCINES (1 - Tdap) 1996 HEPATITIS B VACCINE (1 of 3 - 19+ 3-dose series) 1996 COVID-19 VACCINE ( - 2023-2 5 season) 2023 INFLUENZA VACCINE (#1) 2023 DEPRESSION SCREENING 03/07/2024 ZOSTER VACCINE (1 of 2) 10/04/2027 HIB VACCINE Aged Out No longer eligi ble based on patient's age to complete this topic HPV VACCINE Aged Out No longer eligi ble based on patient's age to complete this topic MENINGOCOCCAL (Group B) VACCINE Aged Out No longer eligible based on patient's age to complete this topic MENINGOCOCCAL VACCINE Aged Out No dulce milo eligible based on patient's age to complete this topic PNEUMOCOCCAL VACCINE Aged Out No long er eligible based on patient's age to complete this topic Care Teams Service Parts Coordinator Relationship Specialty Start Date End Date Bib Reaves MD [address] [place] [address] PCP - General 10/23/20
== END 2024-04-26 07:25 | disposition home or self-care (01) ==
PROVIDERS: PCP Family Medicine; Visit Provider Family Medicine
DX: Z12.31 Encounter for screening mammogram for malignant neoplasm of breast (principal); R92.8 Other abnormal and inconclusive findings on diagnostic imaging of breast
CPT/HCPCS: 77063; 77067

== ENCOUNTER 2024-05-17 10:49 | Outpatient (CLI) | payer BC, OTHER, SELFPAY ==
--- NOTE | ~2024-05-17 | MM_ITS ---
EXAMINATION: MM diagnostic joelle LT w desiree HISTORY: Left breast asymmetry TECHNIQUE: Additional 3-D tomosynthesis images of the left breast were performed and synthetic 2-D im ages were generated. CAD analysis was submitted and interpreted. COMPARISON: 04/26/2024: 1922, 02/15/2022 BREAST PARENCHYMAL COMPOSITION:Not Dense. There are scattered areas of fibroglandular density. FINDINGS: Left breast asymmetry effaces with spot compression. No persistent mass lesion or distortio n. No suspicious microcalcification. IMPRESSION: No mammographic evidence for malignancy. BI-RADS Category 1: Negative Reviewed, dictated and finalized at location .
--- OUTSIDE RECORDS SUMMARY | 2024-05-17 12:42 | XMS_ITS | Clinical Summary ---
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 Gender Identity Not on file Sexual Orientation Not on file Last Filed Vital Signs Vital Sign Reading Time Taken Comments Blood Pressure 114/63 04/05/2015 10:53 AM STATION BAGGAGE PORTER Pulse 58 04/05/2015 10:53 AM STATION BAGGAGE PORTER Temperature 36.7 C (98 F) 04/05/2015 10:53 AM STATION BAGGAGE PORTER Respiratory Rate 16 04/05/2015 10:53 AM STATION BAGGAGE PORTER Oxygen Saturation 97% 04/05/2015 10:53 AM STATION BAGGAGE PORTER Inhaled Oxygen Concentration - - Weight 94.3 kg (208 lb) 04/04/2015 6:17 AM STATION BAGGAGE PORTER Height 172.7 cm (5' 8 ) 03/12/2015 3:26 PM STATION BAGGAGE PORTER Body Mass Index 31.63 03/12/2015 3:26 PM STATION BAGGAGE PORTER Plan of Treatment Health Maintenance Due Date [...] age to complete this topic PNEUMOCOCCAL VACCINE 0-49 YEARS Aged Out No longer eligible based on patient's age to complete this topic Medical Devices Implanted Type Area Energy Infrastructure Engineer Device Identifier Shelf Expiration Date Model / Serial / Lot Sling Desara System [id number] - [id number] Implanted:Qty: 1 on 04/04/2015 by Kely Youngblood MD at [facility] Sling N/A: Urethra [employer] 06/03/2017 [id number] / / [id number] Description:PO#[id number] Iud Insurance [facility] [id number] Advance Directives For more information, please contact: [phone] * Full Code (Latest Code Status on File) Date Activated Date Inactivated Comments 04/04/2015 6:06 AM 04/05/2015 4:25 PM
--- OUTSIDE RECORDS SUMMARY | 2024-05-17 12:42 | XMS_ITS | Data Portability ---
Author Organization [facility] [place],, Main Office Address [address] [place] [address] Care Team Providers Care Hand Printed Circuit Board Assembler Name Role Phone JACQUELINE ZUNIGA Primary Care Provider Assessment Encounter Date Assessment Date Assessment LastModified by Organization Details LastModified Time 09/17/2020 09/17/2020 Total time spent on the date of service preparing for, seeing the patient, and completing the documentation was 35 minutes. Not available 09/17/2020 15:09:27 10/15/2020 10/15/2020 Total time spent on the date of service preparing for, seeing the patient, and completing the documentation was 35 minutes. [email or web address] Not available 10/15/2020 15:27:41 Plan of Treatment Reminders Order Date Submit Date Provider Last Modified By Organization Details Last Modified Time Details Appointments None recorded. Lab None recorded. Referral None recorded. Procedures None recorded. Surgeries None recorded. Imaging None recorded. Medication Orders Valtrex 1 gram tablet 2020 [address] [id number], [address], [place], [id number], 11:45:24 Patient TargetsNo targets recorded. Patient InstructionsNo instructions recorded. Reason for Referral None Reported. Problems Name Problem SNOMED Code Status Onset Date Resolution Date Notes Provider Name and Address Organization Details Recorded Time Pain in right foot 3305072352003 07 Active 2020 Geneva Beasley DPM [address], [place], [address], [facility], 1 15:07:02 Plantar wart of right foot 8313814387304 9101 Active 2020 Geneva Beasley, ETHAN [address], [place], [address], [facility], 1 15:07:03 Liza is 224785168 Active 2020 Geneva Beasley, ETHAN [address], [place], [address], [facility], 1 15:07:03 Problem Notes None recorded. Procedures Surgical History Date Name Laterality Status Provider Name and Address Organization Details Recorded Time Skin Lesion Topical Procedure completed Geneva Beasley DPM [address], [place], [address], [facility], 09/17/2020 15:08:50 [facility] 15:09:15 procedure on gallbladder completed [facility], 08/13/2020 15:09:24 extraction of wisdom tooth completed [facility], 08/13/2020 15:09:47 Imaging Results None recorded. Procedure [...] Arterial blood by Pulse oximetry Body temperature Pain severity - 0-10 verbal numeric rating [Score] - Reported Systolic blood pressure Diastolic blood pressure Provider Name and Address Organization Details Last Updated DateTime 1 175.26 cm 36.3 kg/m2 526166. 72 g 63 /min 98 % 98 % 97.3 [degF] 1 124 mm[Hg] 80 mm[Hg] [facility], 1 15:06:58 Date Recorded Body height Body mass index (BMI) Body weight Heart rate Oxygen saturation Oxygen saturation in Arterial blood by Pulse oximetry Body temperature Pain severity - 0-10 verbal numeric rating [Score] - Reported Systolic blood pressure Diastolic blood pressure Provider Name and Address Organization Details Last Updated DateTime 1 175.26 cm 36.3 kg/m2 789870. 72 g 82 /min 98 % 98 % 98.2 [degF] 5 123 mm[Hg] 77 mm[Hg] [facility], 1 14:31:42 Date Recorded Body height Body mass index (BMI) Body weight Heart rate Oxygen saturation Oxygen saturation in Arterial blood by Pulse oximetry Body temperature Systolic blood pressure Diastolic blood pressure Provider Name and Address Organization Details Last Updated DateTime 1 175.26 cm 36.3 kg/m2 817513. 72 g 80 /min 99 % 99 % 98.2 [degF] 126 mm[Hg] 95 mm[Hg] Kimmie Haney [facility], 14:01:40 Social History Question Answer Notes LastModified by Organizat ion Details LastModified Time Tobacco Smoking Status Former Smoker Started: 15, Quit: 7 yrs ago Tracy zhong [facility] [place], 08/13/2020 15:08:31 What Is Your Level Of Alcohol Consumption? 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 08/13/2020 Information not available 08/13/2020 Sex: Unknown Functional [...] 2107 Geneva Beasley DPM Main Office [address] [place] [address] 08/13/2020 13:59:25 08/13/2020 14:31:20 Pain in right foot 6895394735 63835 M79.671 Discussed options of care with {{him [...] basis. Plantar wa rt of right foot 7417397444 5009762 B07.0 Porokeratosis 296038169 Q82.8 2502 Geneva Beasley DPM Main Office [address] [facility] [address] [place] [address] 09/17/2020 14:09:06 09/17/2020 15:08:35 Pain in right foot 4591813663 29584 M79.671 Discussed options of care with {{him [...] month. Plantar wa rt of right foot 0760183996 9812491 B07.0 Porokeratosis 502099263 Q82.8 2902 Geneva Beasley DPM Main Office [address] [facility] [facility] [address] [place] [address] 10/15/2020 13:51:12 10/15/2020 14:07:51 Pain in right foot 8776140861 07573 M79.671 Discussed options of care with {{him [...] month. Plantar wa rt of right foot 6554052747 1262219 B07.0 Porokeratosis 435553889 Q82.8 Health Concerns Section Related Observation LastModified by Organization Detai ls LastModified Time None Recorded Concern Status LastModified by Organization Details LastModified Time None Recorded Advance Directives Directive None Recorded Payers Encounter Date Sequence Insurance Name Policy Number Policy Hi Covered Member ID Hi Member ID Guarantor Name 08/13/2020 1 [place] [id number] Priyanka Paris [id number] Priyanka Paris 08/13/2020 2 [facility] [id number] Priyanka L Chu [id number] Priyanka Paris 09/17/2020 1 [place] [id number] Priyanka Paris [id number] Priyanka Chu 09/17/2020 2 [facility] [id number] Priyanka L Chu [id number] Priyanka Paris 10/15/2020 1 [place] [id number] Priyanka Paris [id number] Priyanka Chu 10/15/2020 2 [facility] [id number] Priyanka L Chu [id number] Priyanka Paris Notes Date Note Type Note Provider Name [...] reports x-ray reports}} Geneva Beasley DPM [address] [facility] [address] [place] [address], [address], [facility], 08/13/2020 15:42:45 09/17/2020 text/html Patient returns to [...] records* operative reports lab reports x-ray reports}} Genvea Beasley DPM [address], [place], [address], [facility], 09/17/2020 15:11:37 10/15/2020 text/html Patient returns to [...] reports x-ray reports}} Geneva Beasley DPM [address], [place], [address], [facility], 10/15/2020 15:27:58 OBGyn Episode No OBEpisode recorded.
--- OUTSIDE RECORDS SUMMARY | 2024-05-17 12:43 | XMS_ITS | Patient Health Summary ---
Author Organization [facility] Address [address] [facility] [place] [address] Care Team Providers Care Silver Chaser Name Role Phone Bib Reaves MD Primary Care Provider [phone] Note from [facility],non-owned Affiliates and Associated Physician Practices is amultiple site organization consisting of ambulatory clinics and hospital sitesin [place], [place], [place] and [place]. This disclosure is being madepursuant to the Care Everywhere program and may not contain all information available regarding this patient. Last updated 17.[facility] [employer] Allergies No known active allergies Medications * [...] AM CDT Pulse 48 03/26/2009 9:37 AM RADIO DIVISION OFFICER Temperature 36.2 C (97.2 F) 03/26/2009 8:27 AM RADIO DIVISION OFFICER Respiratory Rate 16 03/26/2009 9:37 AM RADIO DIVISION OFFICER Oxygen Saturation 97% 03/26/2009 9:37 AM RADIO DIVISION OFFICER Inhaled Oxygen Concentration - - Weight [...] 11:13 AM CDT) Fungus Stain Final report [facility] ([facility]) Result 1 [facility] ([facility]) Comment:NICCI/Calcofluor prepa ration: no fungus observed. Culture Fungus (Mycology) Final report [facility] ([facility]) Result 1 [facility] ([facility]) Comment:No yeast or mold iso lated after 4 weeks. 09/27/2012 11:1 3 AM CDT 09/27/2012 6:35 PM CDT Narrative [facility] ([facility]) - 10/25/2012 3:20 PM CDT Performed at: [address] [place] [id number] Lathe Tender: Jordi Baker PhD, Phone: [phone] Terese Perrin APRN-EROSION CONTROL COORDINATOR LAB - MICRO BIOLOGY ORDERABLES [facility] ([place]) * REF LAB-SPECIMEN STATUS REPORT (09/27/2012 11:13 AM CDT) Specimen Status [facility] ([place]) Comment: Ambiguous Test Order Ambiguous [...] AM CDT 09/27/2012 6:35 PM CDT Narrative [facility] ([place]) - 10/25/2012 3:20 PM CDT Performed at: [address] [id number] Lathe Tender: Jordi Baker PhD, Phone: [phone] Terese Perrin APRN-EROSION CONTROL COORDINATOR LAB - CHEMI STRY ORDERABLES Performing Organization Address City/[facility] Co de Phone Number [facility]) * CARDIAC RHYTHM STRIP ORDER (04/07/2009 7:29 PM RADIO DIVISION OFFICER) Narrative 04/07/2009 7:29 PM RADIO DIVISION OFFICER Ordered by an unspecified provider. Transcriptions Document, Scanned - 03/26/2009 12:00 AM RADIO DIVISION OFFICER Scanned Document CARDIAC SERVICES ORD ERABLES * HCG URINE QUALITATIVE (03/26/2009 6:30 AM RADIO DIVISION OFFICER) HCG Qual Urine Negative SEE BELOW [facility] Comment: Normal, Negative Pos, Sensitivity 25 MIU/ML Comment hCG Urine [facility] Comment: For optimal results, it is best to test the first urine voided in the morning because it contains the greatest concentration of hCG. URINE / Unknown 03/26/2009 6 :30 AM RADIO DIVISION OFFICER 03/26/2009 6:37 AM RADIO DIVISION OFFICER Adiel Hector MD LAB - URINALYSIS ORD ERABLES [facility] [address] [place] [address] Care Teams Silver Chaser Relationship Specialty Start Date End Date Bib Reaves MD [address] [place] [address] PCP - General 10/23/20
--- OUTSIDE RECORDS SUMMARY | 2024-05-17 12:43 | XMS_ITS | Clinical Summary ---
Author Organization [facility] [employer] Address [address] [facility] [address] [place] [address] Care Team Providers Care Senior Net Programmer Name Role Phone Bib Reaves MD Primary Care Provider [phone] Source Comments [facility] [employer],non-owned Affiliates and Associated Physician Practices is amultiple site organization consisting of ambulatory clinics and hospital sitesin [place], [place], [place] and [place]. This disclosure is being madepursuant to the Care Everywhere program and may not contain all information available regarding this patient. Last updated 17.[employer] Allergies No known active allergies Medications * [...] AM CDT Pulse 48 03/26/2009 9:37 AM BACK ROLL LATHE OPERATOR Temperature 36.2 C (97.2 F) 03/26/2009 8:27 AM BACK ROLL LATHE OPERATOR Respiratory Rate 16 03/26/2009 9:37 AM BACK ROLL LATHE OPERATOR Oxygen Saturation 97% 03/26/2009 9:37 AM BACK ROLL LATHE OPERATOR Inhaled Oxygen Concentration - - Weight [...] to complete this topic MENINGOCOCCAL (Group B) VACC INE SHARED DECISION-MAKING Aged Out No longer eligibl e based on patient's age to complete this topic MENINGOCOCCAL GROUPS A/C/Y/W VACCINE Aged Out No longer eligible b ased on patient's age to complete this topic PNEUMOCOCCAL VACCINE Aged Out No long er eligible based on patient's age to complete this topic Care Teams Senior Net Programmer Relationship Specialty Start Date End Date Bib Reaves MD [address] [place] [address] PCP - General 10/23/20
--- OUTSIDE RECORDS SUMMARY | 2024-05-17 12:43 | XMS_ITS | Data Portability ---
Author Organization 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 [email or web address] Not available 04/12/2024 09:23:57 Plan of Treatment Reminders Order Date Submit Date Provider Last Modified By Organization Details Last Modified Time Details Appointments None recorded. Lab test, urine 2024 025 [facility], [address], [address], [place], [address], 09:58:59 hormone panel, serum or plasma 2021 022 [facility] ([facility]), [address], [place], [address], 11:30:29 prolactin, serum 2021 022 [facility] ([facility]), [address], [place], [address], 11:30:29 Referral urogynecolo gist referral - Vulvar specialist referral!!! 2020 021 [email or web address] Senia Chavez MD - [facility], [address], [place], [address], 16:49:51 Procedures None recorded. Surgeries None recorded. Imaging MAMMO, screening, digital, bilateral 2024 025 [email or web address] [facility], [address], [address], [place], [address], 5 11:18:31 Medication Orders clobetasol 0.05 % topical ointment 2021 022 [id number], [address], [place], [place], [id number], 2 11:20:05 clobetasol 0.05 % topical ointment 2021 022 [id number], [address], [place], [place], [id number], 12:59:24 nystatin-tr iamcinolone 100,000 unit/gram-0 .1 % topical ointment 2020 021 [facility] #[id number], [address] , [place], [place], [id number], 2 11:06:04 Patient TargetsNo targets recorded. Patient InstructionsNo instructions recorded. Reason for Referral Urogynecologist Referral for Genital lichen sclerosus Lichen's Sclerosis Management Vulvar specialist referral!!! Referring Physician: Sheryl Brennan, TOPOGRAPHY TECHNICIAN, Encounter Date: 10/22/2020 Results Created Date Observation Date Name Description Value Unit Range Abnormal Flag Note LastModifiedBy Organization Detail LastModifiedTime 10/23/1910/22/2020 IMAGE GUIDE D PAP AND HPV REGAR DLESS image guided Pap, HPV regardless of Pap result SEE RESULT S BELOW CASE REPOR T: Cytol ogy Gynec ologi antonio Repor t Case: [id number] Autho michelle gautam Provi lisa: Husam faria , Timothy Zacarias cted: 10/22 1211 SHERIFF DETECTIVE Order ing Locat ion: [place] [facility] [...] Thinp rep Imagi ng Syste m. CLINI ANTONIO INFOR MATIO N: Menst rual Statu s: LMP (if appli cable ): 021 Clini antonio Histo ry/Pr eviou s Pap: Type of Neopl toribio (if appli cable ): Signi fican t Clini antonio Findi ngs: Other Histo ry: Hormo leah [...] ng do not corre late with physi antonio and/o r histo rical findi ngs, furth er inves tigat ion is recom estefanía d, as clini nilson foster nted. 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 CLINI ANTONIO INFOR MATIO N: Menst rual Statu s: LMP (if appli cable ): Clini antonio Histo ry/Pr eviou s Pap: Type of Neopl toribio (if appli cable ): Maryi fred t Clini antonio Findi ngs: Other Histo ry: Hormo leah [...] ng do not corre late with physi antonio and/o r histo rical findi ngs, furth er inves tigat ion is recom estefanía d, as clini nilson warra nted. Not Available [facility] ([facility]) [address], [place], [address], 04/17/2024 14:19:22 04/12/19 25 04/12/2024 pregn lennie test, urine HCG negati ve Not Available [facility] [address], [place], [address], 04/12/2024 09:58:51 02/16/20 22 02/15/2022 MAMMO , scree gómez, bilat eral No observ ation record ed. [address], [address], 02/24/2022 13:30:59 02/17/20 22 02/15/2022 MAMMO , scree gómez, bilat eral No observ ation record ed. [address], [address], 02/24/2022 13:31:00 03/26/19 23 03/25/2022 imagi ng/alice tran tic resul t No observ ation record ed. [address], [address], 04/17/2024 14:38:14 Result Notes None recorded. Problems Name Problem SNOMED Code Status Onset Date Resolution Date Notes Provider Name and Address Organization Details Recorded Time Routine antenata l care Completed 201010/22/2020 Supervisi on of other normal ;Practice ID: 0001 Heather zhong [facility] 10:26:37 anatomy study Completed 201010/22/2020 [facility] SURVEY;Pr actice ID: 0001 Heather zhong [facility] 10:26:16 Vaginiti s and vulvovag initis Completed 201010/22/2020 Vaginitis and vulvovagi nitis, unspecifi ed;Practi ce ID: 0001 Heather zhong [facility] 10:26:50 Liver disorder in pregnanc y - not delivere d [id number] Completed 201010/22/2020 Antepartu m liver disorders ;Practice ID: 0001 Heather zhong [facility] 10:26:21 Delivery normal 98253311 Completed 201010/22/2020 Normal delivery; Practice ID: 0001 Heather zhong [facility] 10:26:11 Single live 652724639 Completed 201010/22/2020 Mother with single liveborn; Practice ID: 0001 Heather zhong [facility] 10:26:42 Removal of intraute rine device Completed 201610/22/2020 Encounter for removal of intrauter ine contracep tive device;Pr actice ID: 0001 Heather zhong [facility] 10:26:35 Insertio n of intraute rine contrace ptive device Completed 201610/22/2020 Encounter for insertion of intrauter ine contracep tive device;Pr actice ID: 0001 Heather zhong [facility] 08/18/202 1 10:26:19 Pregnanc y test negative 471524648 Completed 201610/22/2020 Encounter for test, result negative; Practice ID: 0001 Heather zhong [facility] 10:26:29 Contrace ptive sheath status 170850057 Completed 201610/22/2020 Encounter for routine checking of intrauter ine contracep dev;Pract ice ID: 0001 Heather Small [facility] 10:26:[address] Concept Completed 201810/22/2020 Encntr for field director exam (general) (routine) w/o abn findings; Practice ID: 0001 Heather zhong [facility] 10:26:46 Screenin g for malignan t neoplasm of rectum Completed 201810/22/2020 Encounter for screening for malignant neoplasm of rectum;Pr actice ID: 0001 Heather Small [facility] 10:26:41 Hypertro phy of clitoris 95845739 Completed 201910/22/2020 Oth noninflam matory disorders of vulva and perineum; Practice ID: 0001 Heather Small [facility] 10:26:18 Body mass index 30+ - obesity 488125948 Completed 201810/22/2020 Body mass index (BMI) 36.0-36.9 , adult;Rec orded Elsewhere : No Locati on: [facility] So urce: EHR Chron ic: N Practic e ID: 0001 Bill able Time: 08:30:00 AM [facility] 10:26:[address] Concept Completed 201810/22/2020 Encntr for general adult medical exam w/o abnormal findings; Recorded Elsewhere : No Locati on: [facility] So urce: EHR Chron ic: N Practic e ID: 0001 Bill able Time: 08:30:00 AM Heather Small [facility] 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 10:26:47 Obesity 274114734 Completed 201410/22/2020 Obesity;R ecorded Elsewhere : No Locati on: [facility] So urce: EHR Chron ic: N Practic e ID: 0001 Bill able Time: 10:45:00 AM Heather Small [facility] 10:26:26 Family planning surveill ance Completed 201110/22/2020 Contracep tive surveilla nce, unspecifi ed;Record ed Elsewhere : No Locati on: [facility] So urce: EHR Chron ic: N Practic e ID: 0001 Bill able Time: 08:30:00 AM Heather Small [facility] 10:26:14 Eruption [id number] Completed 201110/22/2020 Rash and other nonspecif ic skin eruption; Recorded Elsewhere : No Locati on: [facility] So urce: EHR Chron ic: Y Practic e ID: 0001 Bill able Time: 12:00:00 PM Heather Small [facility] 10:26:13 Screenin g for malignan t neoplasm of cervix Completed 201110/22/2020 Screening for malignant neoplasms of the cervix;Re corded Elsewhere : No Locati on: [facility] So urce: EHR Chron ic: N Practic e ID: 0001 Bill able Time: 09:30:00 AM Heather Small [facility] 10:26:39 Postpart um care Completed 201110/22/2020 Routine postpartu m follow-up ;Recorded Elsewhere : No Locati on: [facility] So urce: EHR Chron ic: N Practic e ID: 0001 Sung beck Time: 09:30:00 AM [facility] 10:26:27 Amenorrh ea 65795056 Completed 201010/22/2020 AMENORRHE A;Practic e ID: 0001 [facility] 10:26:06 Pregnanc y test positive 751803030 Completed 201010/22/2020 Positive Test;Prac zuleima ID: 0001 [facility] 10:26:31 Low back pain 339058314 Completed 201010/22/2020 Lumbago;P mesha ID: 0001 Heather Small [facility] 10:26:23 Adult health examinat ion Completed 201010/22/2020 Routine general medical examinati on at a health care facility; Practice ID: 0001 [facility] 10:26:04 Uterine size for dates [facility] [id number] Completed 201010/22/2020 UTERINE SIZE MAYA-ANTEP AR;Practi ce ID: 0001 [facility] 10:26:49 Primigra tai [id number] Completed 201010/22/2020 Supervisi on of normal first ;Practice ID: 0001 Heather Small [facility] 10:26:34 Neoplasm of uncertai n behavior of female genital organ 80602526 Completed 201210/22/2020 Lesion Uncertain Genital;P mesha ID: 0001 Heather Small [facility], [facility] 10:26:24 Problem Notes None recorded. Procedures Surgical History Date Name Laterality Status Provider Name and Address Organization Details Recorded Time 025 IUD Removal completed LEE ANN Alfred [address], [place], [address], [facility] 04/12/2024 09:56:47 021 Date of Last Pap Smear completed Heatherkishor Santana [facility] 08/04/2021 15:06:37 021 Date of Last Mammogram completed BENNIE Sadler [facility] 04/12/2024 09:26:07 016 completed [facility] 10/22/2020 10:46:11 016 repair of stress incontinence by suprapubic sling completed [facility] 10/22/2020 10:50:41 013 biopsy of vulva completed [facility] 10/22/2020 10:52:00 008 removal of silastic tubes from ear completed [facility] 10/22/2020 10:50:12 006 Cholecystectomy completed [facility] 10/22/2020 10:49:52 Imaging Results Imaging Date Name Status LastModified by Organiz ation Details LastModified Time 02/15/2022 MAMMO, screening, bilateral completed [place] [id number] [facility] [address], [address], 02/24/2022 13:30:59 02/15/2022 MAMMO, screening, bilateral completed [place] [id number] [facility] [address], [address], 02/24/2022 13:31:00 03/25/2022 imaging/diagno stic result completed [facility] [address], [place], [address], 04/17/2024 14:38:14 Procedure Notes None recorded. Medical [...] Prescrib ed Elsewher e: Yes Loca tion: [facility] odify By: michael muñozi Newo unter DateTime [...] Prescrib ed Elsewher e: No Locat ion: [facility] M odify By: tian Larkin nter DateTime : 09/16/19 13 08:00:00 AM Not Available Not Available Not Available Nystop 100,000 unit/gram topical powder APPLY TOPICALL Y TWICE DAILY 10/22 completed Not Available Not Available Not Available fluconazo le 200 mg tablet take 1 tablet by oral route on days 1, 4 & 7. 10/22 completed Prescrib ed Elsewher e: No Locat ion: [facility] odify By: cfriedcarla santos Enco unter DateTime : 05/15/19 08:45:00 AM Not Available Not Available Not Available Medrol (Gregorio) 4 mg tablets in a dose pack take as directed 09/15 completed Prescrib ed Elsewher e: No Locat ion: [facility] odify By: hang yo DateTime : 09/07/19 13 08:30:51 AM Not Available Not Available Not Available Paxil 10 mg/5 mL oral suspensio n take 10 millilit er by oral route every day 10/22 completed Prescrib ed Elsewher e: Yes Loca tion: [facility] odify By: britton davisuntcarla DateTime : 05/15/19 08:45:00 AM Not Available Not Available Not Available clobetaso l 0.05 % topical cream apply by topical route 2 times every day a thin layer to the affected area(s) 11/01 completed Prescrib ed Elsewher e: No Locat ion: [facility] odify By: jlpuricrayray Wolffo unter DateTime : 04/24/19 13 09:00:00 AM Not Available Not Available Not Available Diflucan 150 mg tablet take 1 tablet by oral route once 10/26 completed Prescrib ed Elsewher e: No Locat ion: [facility] odify By: karol yo DateTime : 10/26/19 [...] Elsewher e: Yes Loca tion: [facility] odify By: britton yo DateTime : 04/15/19 17 08:45:00 AM Not Available Not Available Not Available Nexium 20 mg capsule,d elayed release take 1 capsule by ORAL route every day 10/22 completed Prescrib ed Elsewher e: Yes Loca tion: [facility] odify By: minnie yo DateTime : 09/29/19 [...] Elsewher e: No Locat ion: [facility] odify By: hang yo DateTime : 03/01/20 12 09:22:50 AM Not Available Not Available Not Available amitripty line 25 mg tablet take 1 tablet (25MG) by oral route every day at bedtime 09/15 completed Prescrib ed Elsewher e: No Locat ion: [facility] odify By: tian alberto DateTime : 09/16/19 13 08:00:00 AM Not Available Not Available Not Available mebendazo le 100 mg chewable tablet chew 1 tablet (100MG) by oral route 2 times every day for 3 days in the morning and evening 08/26 completed Prescrib ed Elsewher e: No Locat ion: [facility] odify By: tian Larkin ntcarla DateTime : 08/25/19 13 08:30:00 AM Not Available Not Available Not Available Flagyl 500 mg tablet take 1 tablet (500MG) by oral route 2 times every day 08/24 completed Prescrib ed Elsewher e: No Locat ion: [facility] odify By: anbirk E ncounter DateTime : [...] Elsewher e: Yes Loca tion: [facility] odify By: karol Seo ncounter DateTime : 09/29/19 11 03:45:00 PM Not Available Not Available Not Available Albenza 200 mg tablet take 2 tablet (400MG) by oral route then repeat in two weeks 09/15 completed Prescrib ed Elsewher e: No [facility] By: hang Seo ncounter DateTime [...] ed Elsewher e: Yes Loca tion: [facility] odify By: jlpgilda lli Newo unter DateTime : 06/03/19 12 08:30:00 AM [...] ed Elsewher e: No Locat ion: [facility] odify By: cfrieder ich Enco unter DateTime : 05/15/19 20 08:45:00 AM Not Available Not Available Not Available Bactrim DS 800 mg-160 mg tablet take 1 tablet by oral route every 12 hours 05/18 completed Prescrib ed Elsewher e: No Locat ion: [facility] odify By: clareroseanna santos Enco unter DateTime : 05/15/19 20 08:45:00 AM Not Available Not Available Not Available Gyne-Lotr imin 2 % vaginal cream apply by Topical route every morning for 7 days may use prn for itching 04/30 completed Prescrib ed Elsewher e: No Locat ion: [facility] odify By: aleick Encount er DateTime : 04/24/19 13 09:00:00 AM Not Available Not Available Not Available Lexapro 5 mg/5 mL oral solution take 10 millilit er by oral route every day 05/14 completed Prescrib ed Elsewher e: Yes Loca tion: [facility] odify By: albertocarla santos Enco unter DateTime : 10/27/19 16 08:45:00 AM Not Available Not Available Not Available Wellbutri n XL 150 mg 24 hr tablet, extended release take 1 tablet by oral route every day 10/22 completed Prescrib ed Elsewher e: Yes Loca tion: [facility] odify By: britton davisunter DateTime : 05/15/19 20 08:45:00 AM Not Available Not Available Not Available - Folic Acid 27 mg-1 mg tablet take 1 tablet by ORAL route every day 02/22 completed Prescrib ed Elsewher e: Yes Loca tion: [facility] odify By: jlpgilda velazquez Enco unter DateTime : 09/29/19 11 03:45:00 PM [...] Prescrib ed Elsewher e: Yes Loca tion: [facility] odify By: britton davisuntcarla DateTime : 09/29/19 11 03:45:00 PM Not Available Not Available Not Available Prenate Elite (New Formulati on) 27 mg-1 mg tablet take 1 tablet by oral route every day 02/22 completed Prescrib ed Elsewher e: No Locat ion: [facility] odify By: michael velazquez Enco unter DateTime : 02/24/20 11 06:14:22 PM Not Available Not Available Not Available lidocaine 5 % topical ointment apply by Topical route 2 times every day 05/14 completed Prescrib ed Elsewher e: No Locat ion: [facility] odify By: marnie santos Enco unter DateTime [...] Updated DateTime 10/22/2020 171.45 cm 37.8 kg/m2 898373.1 3 g 128 mm[Hg] 75 mm[Hg] [facility] 1 10:46:04 Date Recorded Body height Body mass index (BMI) Body weight Systolic blood pressure Diastolic blood pressure Provider Name and Address Organization Details Last Updated DateTime 08/05/2021 171.45 cm 36.5 kg/m2 193434.9 5 g 120 mm[Hg] 77 mm[Hg] [facility] 2 12:37:08 Date Recorded Body height Body weight Body mass index (BMI) Provider Name and Address Organization Details Last Updated DateTime 12/22/2021 172.72 cm 638534.88 g 34.4 kg/m2 [facility] 12/22/2021 11:05:36 Date Recorded Systolic blood pressure Diastolic blood pressure Provider Name and Address Organization Details Last Updated DateTime 12/22/2021 126 mm[Hg] 74 mm[Hg] Sheryl Brennan KRISTIN- [address], [place], [address], [facility] 12/22/2021 11:26:35 Date Recorded Body height Body mass index (BMI) Body weight Systolic blood pressure Diastolic blood pressure Provider Name and Address Organization Details Last Updated DateTime 04/12/2024 172.72 cm 26.2 kg/m2 84465.89 g 105 mm[Hg] 71 mm[Hg] BENNIE Sadler [facility] 5 09:24:48 Social History Question [...] Or The Highest Degree You Have Received? 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 [id number] Information not available 10/22/2020 Do You Use [...] SNOMED-CT Code Diagnosis ICD10 Code Diagnosis Note [id number] [facility] [address] [address] 10/22/2020 10:15:14 10/22/2020 11:09:52 Gynecologic examination 25063851 Z01.419 Suggested Calcium with Vitamin D 1200-1500m g daily. Patient advised to get an annual flu shot in the fall and she could obtain at [facility] or [facility]. Also to obtain TDap vaccinatio n if [...] mmo Done (2020) Genital li royal sclerosus 459568466 L90.0 [id number] LEE ANN Alfred [facility] [place] [address] [address] 08/05/2021 12:21:36 08/05/2021 13:56:40 Premenstrual dysphoric disorder 788890 F32.81 Lichen sclerosus 4950359 L90.0 Patient has been biopsied and diagnosed with Lichen Sclerosus. She was seeing a vulvar intensive care unit nurse at [facility].She is having significan t itching.We discussed vulvar [...] spent with the patient was 35 minutes [id number] [facility] [address] [address] 12/22/2021 10:44:27 12/22/2021 12:31:40 Gynecologic examination 95491211 Z01.419 Z11.51 Suggested Calcium with Vitamin D 1200-1500m g daily. Patient advised to get an annual flu shot in the fall and she could obtain at [facility] or [facility]. Also to obtain TDap vaccinatio n if [...] IUD for control. Genital li royal sclerosus 824207922 L90.0 Stable on VCG's & cloebetaso l prn useRF sent [id number] LEE ANN Alfred [place] [address] [address] 04/12/2024 09:11:52 04/12/2024 10:00:21 Gynecologic examination 51626332 Z01.419 WWEPap - done todaySTI screen - [...] answered. Screening for malignant neoplasm of breast 752195616 Z12.39 Removal of intrauterine contraceptive device 8807894483 Z30.432 Pt desired IUD removalUPT (-)consent signedIUD [...] Name 10/22/2020 1 [id number] Priyanka Chu [id number] [place] 10/22/2020 2 [facility] [id number] Kwesi [place] [id number] Kwesi L [place] 08/05/2021 1 [place] [id number] Priyanka Chu [id number] [place] 08/05/2021 2 [facility] [id number] Kwesi Chu [id number] Kwesi L [place] 12/22/2021 1 [place] [id number] Priyanka [place] [id number] [place] 12/22/2021 2 [facility] [id number] Kwesi [place] [id number] Kwesi L [place] 04/12/2024 2 [facility] Priyanka L Chu [id number] Kwesi L Chu 04/12/2024 1 [place] [facility] [id number] Priyanka Sage [id number] Kwesi Ad Sage Notes Date Note Type Note Provider Name [...] VUlvar specialist for additional evaluation of LS. LEE ANN Perez- [address], [place], [address], [facility] 10/22/2020 11:07:50 08/05/2021 text/html Vaginal itching. Has been diagnosed with lichens sclerosus. Has seen a vulvar intensive care unit nurse in the past. LEE ANN Alfred [address], [place], [address], [facility] 08/05/2021 13:48:03 12/22/2021 text/html Annual GYNReport [...] starting age 42; Needs to schedule mammogram LEE ANN Perez-BC [address], [place], [address], [facility] 12/22/2021 11:27:53 04/12/2024 text/html Annual GYNReport [...] had negative genetic testing LEE ANN Alfred [address], [place], [address], [facility] 04/12/2024 14:24:59 OBGyn Episode Ob Episode Information Episode Created Date Number of Fetuses Patient Bloodtype Patient rh Status Prepregnancy Weight lbs Domestic Partner Domestic Partner Phone Father Name Manager Mental Health Status 04/12/19 25 1 CLOSED Fetus Data First Name Last Name Admitted to NICU Weight (g) Sex Living Outcome Pediatric Complications Fetus ID Race Codes Race Delivery Type M Full Term [id number] Mikel Calculation Initial Mikle Date Initial Exam Date Initial Exam Provider [...] Domestic Partner Domestic Partner Phone Father Name Manager Mental Health Status 04/12/19 25 1 CLOSED Fetus Data First Name Last Name Admitted to NICU Weight (g) Sex Living Outcome Pediatric Complications Fetus ID Race Codes Race Delivery Type 3175.14 4 M Full Term [id number] Vaginal Delivery Mikel Calculation Initial Mikel Date [...]
--- OUTSIDE RECORDS SUMMARY | 2024-05-17 12:43 | XMS_ITS | Referral Summary ---
Author Organization [facility] [place] Address [address] [place] [address] Care Team Providers Care Cafeteria Cashier Name Role Phone Bib Reaves MD Primary Care Provider [phone] Source Comments [facility] [place],non-owned Affiliates and Associated Physician Practices is amultiple site organization consisting of ambulatory clinics and hospital sitesin [place], [place], [place] and [place]. This disclosure is being madepursuant to the Care Everywhere program and may not contain all information available regarding this patient. Last updated 17.[facility] [place] Allergies No known active allergies Medications * [...] AM CDT Pulse 48 03/26/2009 9:37 AM [facility] Temperature 36.2 C (97.2 F) 03/26/2009 8:27 AM [facility] Respiratory Rate 16 03/26/2009 9:37 AM [facility] Oxygen Saturation 97% 03/26/2009 9:37 AM [facility] Inhaled Oxygen Concentration - - Weight 89.8 kg (198 lb) 09/27/2012 10:12 AM CDT Height 175.3 cm (5' 9 ) 09/27/2012 10:12 AM CDT Body Mass Index 29.24 09/27/2012 10:12 AM CDT Plan of Treatment Not on file Care Teams Cafeteria Cashier Relationship Specialty Start Date End Date Bib eRaves MD [address] [place] [address] PCP - General 10/23/20
== END 2024-05-17 10:50 | disposition home or self-care (01) ==
LOC: ANHIMG 10:52
PROVIDERS: Visit Provider Physician Assistant Medical
DX: R92.8 Other abnormal and inconclusive findings on diagnostic imaging of breast (principal)
CPT/HCPCS: 77061; 77065; G0279